=== PATIENT | female | born 1955 | race Hispanic/Latino ===

== ENCOUNTER → 2018-04-13 | Day surgery (SDC) | payer MEDICARE ==
[2018-04-10 09:21] LABS: BASOPHILS % 0.3 % (0.0-1.0); EOSINOPHILS # (AUTO) 0.1 (0.0-0.4); EOSINOPHILS % 1.5 % (0.0-6.0); HEMOGLOBIN 12.6 g/dL (12.0-16.0); LYMPHOCYTES # (AUTO) 2.2 (1.0-3.2); MEAN CORPUSCULAR HEMOGLOBIN 29.5 pg (28-32); MEAN CORPUSCULAR HGB CONC 33.2 g/dL (31-35); MONOCYTES # (AUTO) 0.4 (0.2-0.8); MONOCYTES % 6.1 % (4.4-11.3); NEUTROPHILS # (AUTO) 3.2 (2.1-6.9); NEUTROPHILS % 53.8 % (38.7-80.0); PLATELET COUNT 184 x10e3/uL (140-360); RED BLOOD COUNT 4.27 x10e6/uL (3.6-5.1); RED CELL DISTRIBUTION WIDTH 12.9 % (11.7-14.4)
[2018-04-10 09:34] LABS: INR 1.16; PROTHROMBIN TIME 15.8 seconds (11.9-14.5)
[2018-04-10 09:35] LABS: PARTIAL THROMBOPLASTIN TIME 39.6 seconds (23.8-35.5)
[2018-04-10 09:43] LABS: ALANINE AMINOTRANSFERASE 19 IU/L (0-55); ALBUMIN 3.5 g/dL (3.5-5.0); ALBUMIN/GLOBULIN RATIO 1.1 (0.8-2.0); ALKALINE PHOSPHATASE 83 IU/L (40-150); ANION GAP 10.8 mmol/L (8-16); BLOOD UREA NITROGEN 16 mg/dL (7-26); BUN/CREATININE RATIO 21 (6-25); CALCIUM 9.2 mg/dL (8.4-10.2); CARBON DIOXIDE 28 mmol/L (22-29); CHLORIDE 101 mmol/L (98-107); CREATININE, SERUM 0.78 mg/dL (0.57-1.11); EST GLOMERULAR FILTRATION RATE > 60 ML/MIN (60-); GLUCOSE 220 mg/dL (74-118); POTASSIUM 3.8 mmol/L (3.5-5.1); SODIUM 136 mmol/L (136-145)
[~2018-04-13] MED LIST: ABILIFY5 MG PO; ALPRAZOLAM0.5 MG PO; ASPIR 8181 MG PO; CARVEDILOL12.5 MG PO; CYMBALTA30 MG PO; FENTANYL CITRATE/PF 100MCG/2 ML INJ ONE; FOLIC ACID1 MG PO; GABAPENTIN300 MG PO; GLUCAGON FOR INJ 1 MG VIAL ONE; LEVOTHYROXINE112 MCG PO; LISINOPRIL10 MG PO; MAGNESIUM OXID400 MG PO; MELOXICAM15 MG PO; METFORMIN HCL500 MG PO; MIDAZOLAM HCL 2 MG/2 ML VIAL ONE; NIACIN500 M2 PO; PANTOPRAZOLE SO40 MG PO; PROPOFOL IV EMULSION 10 MG/ML 50 ML VIAL ONE; SIMVASTATIN20 MG PO; SUPER B COMPLE1 EACH PO; TALTZ IM; TALTZ INJ; TUMERIC PO; VITAMIN D3400 UNI1 PEG
--- OUTSIDE RECORDS SUMMARY | 2018-04-13 07:22 | XMS REPORT | Clinical Summary ---
Author Author [facility]th [facility] Organization [facility] Address Unknown Phone Unavailable Care Team Providers Care College Administrator Name Role Phone Silviano Barrera DO PCP Allergies Comments Active Allergy Reactions Severity Noted Date No Known Drug Allergies 11/26/2015 Medications End Date Status Medication Sig Dispensed Refills Start Date Active GAS RELIEF EXTRA STRENGTH Chew 125 mg 0 125 mg chewable tablet daily as 6 needed. Active jplwpgftaqyv-eone-iyzug 0 acid 18-400 mg-mcg tablet 6 Active INVOKANA 100 mg tablet TK 1 T PO QD 11 6 Active carvedilol (COREG) 25 MG Take 25 mg by 0 tablet mouth 2 (two) 6 times a day with meals. Active clobetasol (TEMOVATE) POLINA AA BID 1 0.05 % ointment 6 Active DULoxetine (CYMBALTA) 60 TK 1 C PO QD 11 MG capsule 6 Active FLUVIRIN 3609-3292 45 mcg ADM 0.5ML IM 0 (15 mcg x 3)/0.5 mL UTD 6 suspension Active folic acid (FOLVITE) 1 MG TK 1 T PO QD 0 tablet 6 Active gabapentin (NEURONTIN) Take 600 mg 0 600 MG tablet by mouth 3 6 (three) times a day. Active levothyroxine (SYNTHROID, Take 112 mcg 0 LEVOTHROID) 112 MCG by mouth 6 tablet daily. Active meloxicam (MOBIC) 15 MG TK 1 T PO QD 0 tablet 6 Active metFORMIN (GLUCOPHAGE) Take 1,000 mg 0 500 MG tablet by mouth 2 6 (two) times a day with meals. Active methotrexate 2.5 MG TK 3 TS PO Q 1 tablet WEEK 6 Active pantoprazole (PROTONIX) Take 40 mg by 0 40 MG EC tablet mouth daily. 6 Active simvastatin (ZOCOR) 20 MG Take 20 mg by 0 tablet mouth 6 nightly. Active apremilast (OTEZLA) 30 mg Take 30 mg by 0 tablet mouth 2 (two) times a day. Active aspirin (ECOTRIN) 81 MG Take 81 mg by 0 enteric coated tablet mouth daily. 06/23/2018 Active lisinopril Take 1 tablet 90 tablet 3 (PRINIVIL,ZESTRIL) 20 mg (20 mg total) 8 tabletIndications: by mouth Dilated cardiomyopathy daily. (HCC) Active ALPRAZolam (XANAX) 0.5 MG Take 0.5 mg 0 tablet by mouth nightly as needed for anxiety. Active ARIPiprazole (ABILIFY) 2 Take 2 mg by 0 MG tablet mouth daily. 04/11/2018 Discontinued DULoxetine (CYMBALTA) 30 Take 30 mg by 0 MG capsule mouth daily. 6 06/23/2017 Discontinued lisinopril Take 10 mg by 0 (PRINIVIL,ZESTRIL) 10 MG mouth daily. 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 Encounters Care Team Description Date Type Specialty Noé Travis MD Dilated cardiomyopathy (HCC) (Primary Dx) 04/11/2018 Office Visit Cardiology Anne Liriano MD PhD Dilated cardiomyopathy (HCC) (Primary Dx) 03/02/2018 Office Visit Cardiology Anne Liriano MD PhD Dilated cardiomyopathy (Primary Dx); Essential hypertension 06/23/2017 Office Visit Cardiology Sandee Ba, AGGIE Return Call 06/03/2017 Telephone Cardiology Anne Liriano MD PhD Cardiomyopathy, unspecified type (Primary Dx) 05/19/2017 Office Visit Cardiology after 04/12/2017 Family History Medical History Relation Name Comments Arthritis Other Cancer Other Diabetes Other Heart disease Other Hypertension Other Lupus Other Relation Name Status Comments Other Social History Date Tobacco Use Types Packs/Day Years Used Current Some Day Smoker Cigarettes Smokeless Tobacco: Never Used Alcohol Use Drinks/Week oz/Week Comments Yes occasional Sex Assigned at Date Recorded Not on file Industry Job Start Date Occupation Not on file Not on file Not on file Travel End Travel History Travel Start No recent travel history available. Last Filed Vital Signs Time Taken Vital Sign Reading 04/11/2018 11:52 AM PROCESSING CLERK Blood Pressure 147/86 04/11/2018 11:52 AM PROCESSING CLERK Pulse 91 - Temperature - - Respiratory Rate - - Oxygen Saturation - - Inhaled Oxygen - Concentration 04/11/2018 11:52 AM PROCESSING CLERK Weight 81.6 kg (180 lb) 04/11/2018 11:52 AM PROCESSING CLERK Height 162.6 cm (5' 4") 04/11/2018 11:52 AM PROCESSING CLERK Body Mass Index 30.9 Plan of Treatment Care Team Description Date Type Specialty Anne Liriano MD PhD [address] [facility] [address] [place] [id number] [phone] 05/31/2018 Appointment Procedural Cardiology Anne Liriano MD PhD [address] [facility] [address] [place] [address] [phone] 06/29/2018 Office Visit Cardiology Noé Travis MD [address] [facility] [address] [place] [address] [phone] 10/17/2018 Office Visit Cardiology Health Maintenance Due Date Last Done Comments CERVICAL CANCER SCREENING 1978 BREAST CANCER SCREENING 08/23/2007 COLON CANCER SCREENING 08/23/2007 SHINGLES VACCINES (#1) 08/23/2007 INFLUENZA VACCINE 09/14/2017 12/15/2014 Procedures Comments Procedure Name Priority Date/Time Associated Diagnosis ECG 12-LEAD Routine 04/11/2018 Dilated cardiomyopathy 11:56 AM PROCESSING CLERK (HCC) CV PACEMAKER DEFIB ILR Routine 04/11/2018 INTERROGATION ECHOCARDIOGRAM 2D Routine 06/13/2017 Cardiomyopathy, COMPLETE W MMODE SPECTRAL 3:15 PM CDT unspecified type COLOR DOPPLER ([id number]) after 04/12/2017 Results * ECG 12 lead (04/11/2018 11:56 AM PROCESSING CLERK) Ventricular rate 80 [facility] Atrial rate 80 [facility] MI interval 130 [facility] QRSD interval 134 [facility] QT interval 430 [facility] QTC interval 495 [facility] P axis 1 74 [facility] QRS axis 1 238 [facility] T wave axis -20 [facility] EKG impression Electronic ventricular [facility] pacemaker-In automated comparison with ECG of 13-JUL-2016 10:21,-No significant change was found- Narrative Performed At Performing Organization Address City/State/Zipcode Phone Number [facility] [address] [place] [address] * CV pacemaker defib or ilr interrogation (04/11/2018) Narrative Performed At * Echocardiogram complete w contrast and 3D if needed (06/13/2017 3:15 PM CDT) Narrative Performed At [facility] Echocardiography Report Pat.Name:GRAYSON RODRIGUEZ Pat.ID:[id number] .Date: 06/13/2017 Refer.MD:ANNE LIRIANO MD Exam Time: 2:35:00 PMStudy Type:Routine Echo Height:64inWeight:180lb BSA: 1.87 m2 DOBAge:1955,61Y Sex: FEMALEBP:132/71 HR:85 bpm Sonogrphr: Cortney Benitez, RCS, RCCS, CCT Pat. Stat.:OutpatientRoom[facility] TapeVol: [facility], Study Status:Final Echo Event ID:[id number] Order ID:[id number] Reason for Study:Cardiomyopathy; cardiotoxic therapy evaluations, Cardiomyopathy History / Clinical:Congestive Cardiomyopathy Procedures:2D Echo, Colorflow Doppler Race: SUMMARY: LV size is normal. LV EF is mild to moderately depressed. Strain imaging not performed. FINDINGS: LV: LV size is normal. LV EF is mild to moderately depressed. Globalhypokinesis. Estimated EF is 40-44%. RV: RV size is normal. A pacemaker wire is seen in the RV. RV functionis normal. LA: LA size is normal. RA: RA volume is normal. A pacemaker wire is seen. AO: Aortic root diameter is normal. JACQUELINE: No pericardial effusion. AV: No structural AV abnormalities noted. MV: No structural MV abnormalities noted. PV: No structural PV abnormalities noted. TV: No structural TV abnormalities noted. Contreras: LV relaxation is impaired. LV filling pressure is normal. Hepaticvein pressure is normal, RA pressure < 5mmHg. Other:Insufficient TR jet to estimate PA systolic pressure. MEASUREMENTS: 2D Parasternal [place] LVOT 2.1 cmAo An2.3 cm LVIDd5 cmIndex2.7 cm/m Ao Rtd 2.7 cm Index1.4 cm/m LVIDs3.6 cmLV Rwws154.4 g(87-129) IVSd 0.9 cmLVM Index 79.9 g/m2 LVPWd0.8 cmRWT0.3 LA Ds3 cm LA Volume LA Vol30.8 xxSbdlq18.5 ml/m Signed 06/13/2017 04:23 PM Humberto Restrepo MD Procedure Note Interface, Radiology Results In - 06/13/2017 4:24 PM CDT [facility] Ech[facility] Report Pat.Name: GRAYSON RODRIGUEZ Ty Pereira.ID: [id number] .Date: 06/13/2017 Refer.MD: ANNE LIRIANO MD Exam Time: 2:35:00 PM Study Type:Routine Echo Height: 64in Weight: 180lb BSA: 1.87 m2 Age: 9 1955,61Y Sex: FEMALE BP: 132/71 HR: 85 bpm Sonogrphr: Cortney Benitez, RCS, RCCS, CCT Pat. Stat.:Outpatient Room: -[address] [place] [address] Vol: [facility], Study Status:Final Echo Event ID:[id number] Order ID: [id number] Reason for Study:Cardiomyopathy; cardiotoxic therapy evaluations, Cardiomyopathy History / Clinical:Congestive Cardiomyopathy Procedures:2D Echo, Colorflow Doppler Race: SUMMARY: LV size is normal. LV EF is mild to moderately depressed. Strain imaging not performed. FINDINGS: LV: LV size is normal. LV EF is mild to moderately depressed. Global hypokinesis. Estimated EF is 40-44%. RV: RV size is normal. A pacemaker wire is seen in the RV. RV function is normal. LA: LA size is normal. RA: RA volume is normal. A pacemaker wire is seen. AO: Aortic root diameter is normal. JACQUELINE: No pericardial effusion. AV: No structural AV abnormalities noted. MV: No structural MV abnormalities noted. PV: No structural PV abnormalities noted. TV: No structural TV abnormalities noted. Contreras: LV relaxation is impaired. LV filling pressure is normal. Hepatic vein pressure is normal, RA pressure < 5mmHg. Other: Insufficient TR jet to estimate PA systolic pressure. MEASUREMENTS: 2D Parasternal [place] LVOT 2.1 cm Ao An 2.3 cm LVIDd 5 cm Index 2.7 cm/m Ao Rtd 2.7 cm Index 1.4 cm/m LVIDs 3.6 cm LV Mass 149.4 g (87-129) IVSd 0.9 cm LVM Index 79.9 g/m2 LVPWd 0.8 cm RWT 0.3 LA Ds 3 cm LA Volume LA Vol 30.8 ml Index 16.5 ml/m Signed 06/13/2017 04:23 PM Humberto Restrepo MD Performing Organization Address City/State/Zipcode Phone Number [facility] [phone] [place] [address] after 04/12/2017 Insurance Payer Benefit Subscriber ID Type Phone Address Plan / Group HUMANA MEDICARE HUMANA xxxxxxxxx PPO MEDICARE PPO/PFFS/E [facility] ([place]) [place] [address] Advance Directives Patient has advance care planning documents on file. For more information, brandi e contact: Roberth Carreon [address] [place] [address]
--- OUTSIDE RECORDS SUMMARY | 2018-04-13 07:23 | XMS REPORT | Continuity of Care Document ---
Author Author [facility] Interface Address Unknown Phone Unavailable Problems Problem Status Onset Date Classification Date Reported Comments Source M25.512 - PAIN IN LEFT SHOULDER Active 01/31/2017 [facility] [place] 574.20 Active 08/07/2014 [facility] UNK Active 08/07/2014 [facility] CCL/EPS, SVT ABLATION/ALBERTO/DX: 427.0, 428 Active 02/21/2014 [facility] CHRONIC COMBINED SYSTOLIC AND DIASTOLIC Active 02/21/2014 [facility] 428.42; 427.0;V45.02 Active 02/21/2014 [facility] ACUTE SHOCK FROM DEFIBRILLATOR Active 02/06/2014 [facility] CHEST PAIN, SOB Active 02/06/2014 [facility] 723.1, CERVICAL PAIN, 724.2, ACUTE LOW B Active 04/04/2012 [facility] SOB DIAGNOSED W/ CHF Active 01/12/2012 [facility] DECOMPENSATED HEART FAILURE Active 01/12/2012 [facility] CHF Active 01/11/2012 [facility] Biliary dyskinesia<sup>3</sup> Active 11/10/2011 Problem 02/14/2017 Data migrated from [employer] on 07/13/14. [facility] [place] Obesity<sup>4</sup> Active 11/10/2011 Problem 02/14/2017 Data migrated from [employer] on 07/13/14. [facility] [place] ICD 575.80 / CPT 80525 Active 11/10/2011 [facility] LUMBAR 4-5 STENOSIS,ICD.9-724.02 Active 02/23/2011 [facility] LUMBAR 4-5 STENOSIS Active 02/23/2011 [facility] Chest pain Inactive Problem 06/08/2012 [facility] Cough Active Problem 06/08/2012 [facility] SOBOE - Shortness of breath on exertion Inactive Problem 06/08/2012 [facility] Chest pain Inactive Problem 06/23/2012 [facility] [place] [facility] Cough Active Problem 06/23/2012 [facility] SOBOE - Shortness of breath on exertion Inactive Problem 06/23/2012 [facility] Anemia<sup>1</sup> Active Problem 02/14/2017 Data migrated from [employer] on 07/13/14. [facility] [place] Asthma<sup>2</sup> Active Problem 02/14/2017 Data migrated from [employer] on 07/13/14. [facility] [place] CHF - Congestive heart failure Active Problem 02/14/2017 [facility] [place] Cough Active Problem 02/14/2017 [facility] [place] Depression Active Problem 02/14/2017 [facility] [place] Diabetes mellitus Active Problem 02/14/2017 [facility] [place] GERD - Gastro-esophageal reflux disease Active Problem 02/14/2017 [facility] [place] HLD - Hyperlipidemia Active Problem 02/14/2017 [facility] [place] HTN - Hypertension Active Problem 02/14/2017 [facility] [place] Hypothyroidism Active Problem 02/14/2017 [facility] [place] JOEL - Obstructive sleep apnea Active Problem 02/14/2017 [facility] [place] Pacemaker catheter, device Active Problem 02/14/2017 [facility] [place] Pain Active Problem 02/14/2017 [facility] [place] CHF - Congestive heart failure Active Problem 06/23/2012 [facility] Depression Active Problem 06/23/2012 [facility] Diabetes mellitus Active Problem 06/23/2012 [facility] GERD - Gastro-esophageal reflux disease Active Problem 06/23/2012 [facility] HLD - Hyperlipidemia Active Problem 06/23/2012 [facility] HTN - Hypertension Active Problem 06/23/2012 [facility] Hypothyroidism Active Problem 06/23/2012 [facility] JOEL - Obstructive sleep apnea Active Problem 06/23/2012 [facility] Pacemaker catheter, device Active Problem 06/23/2012 [facility] Pain Active Problem 06/23/2012 [facility] HEART FAILURE NOS Active [facility] SPIN STEN,LUMBR WO CONSUELO Active [facility] Medications Medication Details Route Status Patient Instructions Ordering Provider Order Date Source pantoprazole 40 mg, 1 tab, Route: PO, Drug form: ECTAB, Daily, Dosing Weight 84.091, kg, Start date: 03/07/14 9:00:00, Duration: 30 day, Stop date: 04/05/14 9:00:00Notes: Tablet should not be chewed or crushed. ( Same as: Protonix) No Longer Active 03/07/2014 [facility] Lisinopril 10 mg, 1 tab, Route: PO, Drug form: TAB, Daily, Dosing Weight 84.091, kg, Start date: 03/07/14 9:00:00, Duration: 30 day, Stop date: 04/05/14 9:00:00Notes: (Same as: Prinivil, Zestril) No Longer Active 03/07/2014 [facility] Thyroxine 150 microgram, 1 tab, Route: PO, Drug form: TAB, Daily, Dosing Weight 84.091, kg, Start date: 03/07/14 9:00:00, Duration: 30 day, Stop date: 04/05/14 9:00:00Notes: Take 1 hour before or 2 hours after meal; Enteral feeds may interefere with the absorption of this medication. (Same as: Levothroid) No Longer Active 03/07/2014 [facility] Aspirin 81 MG Enteric Coated Tablet 81 mg, 1 tab, Route: PO, Drug form: ECTAB, Daily, Dosing Weight 84.091, kg, Start date: 03/07/14 9:00:00, Duration: 30 day, Stop date: 04/05/14 9:00:00Notes: Do not crush or chew. (Same As: Ecotrin) No Longer Active 03/07/2014 [facility] Simvastatin 20 mg, 1 tab, Route: PO, Drug form: TAB, Bedtime, Dosing Weight 84.091, kg, Start date: 03/06/14 21:00:00, Duration: 30 day, Stop date: 04/04/14 21:00:00Notes: (Same as: Zocor) Inactive 03/07/2014 [facility] Saline Flush 0.9% 10 ml, Route: IVP, Drug Form: INJ, Dosing Weight 84.091, kg, Q12H, Start date: 03/06/14 21:00:00, Duration: 30 day, Stop date: 04/05/14 9:00:00Notes: (Same as: BD Posiflush) Inactive 03/07/2014 [facility] Metformin hydrochloride 500 MG Oral Tablet 1,000 mg, 2 tab, Route: PO, Drug form: TAB, BID, Dosing Weight 84.091, kg, Start date: 03/06/14 17:00:00, Duration: 30 day, Stop date: 04/05/14 9:00:00Notes: (Same as: Glucophage) Take with meal Inactive 03/06/2014 [facility] Ibuprofen 800 mg, 1 tab, Route: PO, Drug form: TAB, TID, Dosing Weight 84.091, kg, Start date: 03/06/14 17:00:00, Duration: 30 day, Stop date: 04/05/14 13:00:00Notes: (Same as: Motrin) "Do Not Crush" Take with food. Inactive 03/06/2014 [facility] gabapentin 600 MG Oral Tablet 600 mg, 2 cap, Route: PO, Drug form: CAP, TID, Dosing Weight 84.091, kg, Start date: 03/06/14 17:00:00, Duration: 30 day, Stop date: 04/05/14 13:00:00Notes: (Same as: Neurontin) Inactive 03/06/2014 [facility] Furosemide 40 MG Oral Tablet [Lasix] 40 mg, 1 tab, Route: PO, Drug form: TAB, TID, Dosing Weight 84.091, kg, Start date: 03/06/14 17:00:00, Duration: 30 day, Stop date: 04/05/14 13:00:00Notes: (Same as: Lasix) May cause GI upset. Give with food or milk. Inactive 03/06/2014 [facility] carvedilol 25 mg, 1 tab, Route: PO, Drug form: TAB, BID, Dosing Weight 84.091, kg, Start date: 03/06/14 17:00:00, Duration: 30 day, Stop date: 04/05/14 9:00:00Notes: Give with food. (Same As: Coreg) Inactive 03/06/2014 [facility] Saline Flush 0.9% 10 ml, Route: IVP, Drug Form: INJ, Dosing Weight 84.091, kg, PRN, PRN Line Flush, Start date: 03/06/14 13:16:00, Duration: 30 day, Stop date: 04/05/14 13:15:00Notes: (Same as: BD Posiflush) Inactive 03/06/2014 [facility] Morphine 2 mg, 1 mL, Route: IVP, Drug form: INJ, Q15Min, Dosing Weight 84.091, kg, PRN Chest Pain, Start date: 03/06/14 13:16:00, Duration: 2 doses or times, Stop date: Limited # of timesNotes: (Same as:MORPh ine Sulfate) Inactive 03/06/2014 [facility] Acetaminophen 325 MG / Hydrocodone Bitartrate 5 MG Oral Tablet 1 tab, Route: PO, Drug Form: TAB, Dosing Weight 84.091, kg, Q4H, PRN Pain Score 1-5, Start date: 03/06/14 13:16:00, Duration: 30 day, Stop date: 04/05/14 13:15:00Notes: (Same as: [place] 325/5) Do not exceed 4gm/day of acetaminophen. Inactive 03/06/2014 [facility] levothyroxine 150 mcg (0.15 mg) oral tablet 150 microgram=1 tab, PO, Daily, # 30 tab, 0 Refill(s) Active 03/06/2014 [facility] ibuprofen 800 mg oral tablet 800 mg=1 tab, PO, TID, # 270 tab, 0 Refill(s) Active 03/06/2014 [facility] gabapentin 600 MG Oral Tablet 600 mg=1 tab, PO, TID, # 270 tab, 0 Refill(s) Active 03/06/2014 [facility] methotrexate 2.5 mg oral tablet 3 times per week, 0 Refill(s)Special Instructions: 3 times per week Active 03/06/2014 [facility] Sodium Chloride 0.9% IV 1,000 mL 1,000 mL, Rate: 50 ml/hr, Infuse over: 20 hr, Route: IV, Dosing Weight 84.091 kg, Total Volume: 1,000, Start date: 03/06/14 8:44:00, Duration: 30 day, Stop date: 04/05/14 8:43:00 Inactive 03/06/2014 [facility] Neurontin 1,200 mg, 3 cap, Route: PO, Drug form: CAP, BID, Start date: 06/06/12 9:00:00, Duration: 30 day, Stop date: 07/05/12 17:00:00 PO No Longer Active [place] 06/06/2012 [facility] Januvia 100 mg, 1 tab, Route: PO, Drug form: TAB, Daily, Dosing Weight 96.364, kg, Start date: 06/06/12 9:00:00, Duration: 30 day, Stop date: 07/05/12 9:00:00 PO No Longer Active [place] 06/06/2012 [facility] pantoprazole 40 mg, 1 tab, Route: PO, Drug form: ECTAB, Daily, Dosing Weight 96.364, kg, Start date: 06/06/12 9:00:00, Duration: 30 day, Stop date: 07/05/12 9:00:00 PO No Longer Active [place] 06/06/2012 [facility] lisinopril 5 mg, 1 tab, Route: PO, Drug form: TAB, Daily, Dosing Weight 96.364, kg, Start date: 06/06/12 9:00:00, Duration: 30 day, Stop date: 07/05/12 9:00:00 PO No Longer Active [place] 06/06/2012 [facility] Veramyst 27.5 mcg/inh nasal spray 1 inhalation, Route: NASAL, Drug Form: SPRY, Dosing Weight 96.364, kg, Daily, Start date: 06/06/12 9:00:00, Duration: 30 day, Stop date: 07/05/12 9:00:00 NASAL No Longer Active [place] 06/06/2012 [facility] citalopram 40 mg, 2 tab, Route: PO, Drug form: TAB, Daily, Dosing Weight 96.364, kg, Start date: 06/06/12 9:00:00, Duration: 30 day, Stop date: 07/05/12 9:00:00 PO No Longer Active [place] 06/06/2012 [facility] levothyroxine 112 microgram, 1 tab, Route: PO, Drug form: TAB, Q630AM, Dosing Weight 96.364, kg, Start date: 06/06/12 6:30:00, Duration: 30 day, Stop date: 07/05/12 6:30:00 PO No Longer Active [place] 06/06/2012 [facility] Neurontin 600 mg, 2 cap, Route: PO, Drug form: CAP, Bedtime, Start date: 06/05/12 21:00:00, Duration: 30 day, Stop date: 07/04/12 21:00:00 PO No Longer Active [place] 06/06/2012 [facility] simvastatin 20 mg, 1 tab, Route: PO, Drug form: TAB, Bedtime, Dosing Weight 96.364, kg, Start date: 06/05/12 21:00:00, Duration: 30 day, Stop date: 07/04/12 21:00:00 PO No Longer Active [place] 06/06/2012 [facility] Lasix 40 mg oral tablet 40 mg, 1 tab, Route: PO, Drug form: TAB, Daily, Dosing Weight 96.364, kg, Start date: 06/05/12 18:30:00, Duration: 30 day, Stop date: 07/05/12 9:00:00 PO No Longer Active [place] 06/05/2012 [facility] Colace 100 mg oral capsule 100 mg, 1 cap, Route: PO, Drug form: CAP, BID, Dosing Weight 96.364, kg, Start date: 06/05/12 17:00:00, Duration: 30 day, Stop date: 07/05/12 9:00:00 PO No Longer Active [place] 06/05/2012 [facility] tizanidine 4 mg, 1 tab, Route: PO, Drug form: TAB, BID, Dosing Weight 96.364, kg, Start date: 06/05/12 17:00:00, Duration: 30 day, Stop date: 07/05/12 9:00:00 PO No Longer Active [place] 06/05/2012 [facility] potassium chloride 20 mEq oral tablet, extended release 20 mEq, 1 tab, Route: PO, Drug form: ERTAB, BID, Dosing Weight 96.364, kg, Start date: 06/05/12 17:00:00, Duration: 30 day, Stop date: 07/05/12 9:00:00 PO No Longer Active [place] 06/05/2012 [facility] metFORmin 500 mg oral tablet 1,000 mg, 2 tab, Route: PO, Drug form: TAB, BID, Dosing Weight 96.364, kg, Start date: 06/05/12 17:00:00, Duration: 30 day, Stop date: 07/05/12 9:00:00 PO No Longer Active [place] 06/05/2012 [facility] gabapentin 600 mg oral tablet Route: PO, Drug form: TAB, BID, Dosing Weight 96.364, kg, Start date: 06/05/12 17:00:00, Duration: 30 day, Stop date: 07/05/12 9:00:00 PO No Longer Active [place] 06/05/2012 [facility] Advair Diskus 250 mcg-50 mcg inhalation powder 1 inhalation, Route: INHALATION, Drug Form: AERO, Dosing Weight 96.364, kg, BID, Start date: 06/05/12 17:00:00, Duration: 30 day, Stop date: 07/05/12 9:00:00 INHALATION No Longer Active [place] 06/05/2012 [facility] carvedilol 25 mg, 1 tab, Route: PO, Drug form: TAB, BID, Dosing Weight 96.364, kg, Start date: 06/05/12 17:00:00, Duration: 30 day, Stop date: 07/05/12 9:00:00 PO No Longer Active [place] 06/05/2012 [facility] clindamycin 900 mg, 6 mL, Route: IVPB, Drug form: INJ, ABXQ8H, Dosing Weight 96.364, kg, Start date: 06/05/12 16:00:00, Duration: 30 day, Stop date: 07/05/12 8:00:00 IVPB No Longer Active [place] 06/05/2012 [facility] naloxone 0.04 mg, 0.1 mL, Route: IVP, Drug form: INJ, Q2MIN, Dosing Weight 96.364, kg, PRN Narcotic Reversal, Start date: 06/05/12 15:56:00, Duration: 8 doses or times, Stop date: 06/06/12 0:00:00 IVP No Longer Active Kun 06/05/2012 [facility] hydromorphone 0.5 mg, 0.25 mL, Route: IVP, Drug form: INJ, Q5Min, Dosing Weight 96.364, kg, PRN Pain Score 4-6, Start date: 06/05/12 15:56:00, Duration: 5 doses or times, Stop date: 06/06/12 0:00:00 IVP No Longer Active [place] 06/05/2012 [facility] ondansetron 4 mg, 2 mL, Route: IVP, Drug form: INJ, ONCE, Dosing Weight 96.364, kg, PRN Nausea & Vomiting, Start date: 06/05/12 15:56:00 IVP No Longer Active [place] 06/05/2012 [facility] flumazenil 0.2 mg, 2 mL, Route: IVP, Drug form: INJ, PRN, Dosing Weight 96.364, kg, PRN Benzodiazepine Reversal, Initial dose, Start date: 06/05/12 15:56:00, Duration: 1 day, Stop date: 06/06/12 15:55:00 IVP No Longer Active [place] 06/05/2012 [facility] hydrALAZINE 5 mg, 0.25 mL, Route: IVP, Drug form: INJ, Q5Min, Dosing Weight 96.364, kg, PRN Elevated BP, Start date: 06/05/12 15:56:00, Duration: 4 doses or times, Stop date: 06/06/12 0:00:00 IVP No Longer Active [place] 06/05/2012 [facility] labetalol 5 mg, 1 mL, Route: IVP, Drug form: INJ, Q5Min, Dosing Weight 96.364, kg, PRN Elevated BP, Start date: 06/05/12 15:56:00, Duration: 5 doses or times, Stop date: 06/06/12 0:00:00 IVP No Longer Active [place] 06/05/2012 [facility] Benadryl 12.5 mg, 0.25 mL, Route: IV, Drug form: INJ, Q8H, Dosing Weight 96.364, kg, PRN Itching, Start date: 06/05/12 15:15:00, Duration: 30 day, Stop date: 07/05/12 15:14:00 IV No Longer Active [place] 06/05/2012 [facility] morphine Sulfate 2 mg, 1 mL, Route: IVP, Drug form: INJ, Q2H, Dosing Weight 96.364, kg, PRN Pain, Start date: 06/05/12 15:13:00, Duration: 30 day, Stop date: 07/05/12 15:12:00 IVP No Longer Active [place] 06/05/2012 [facility] Lowden 10/325 oral tablet 1 tab, Route: PO, Drug Form: TAB, Dosing Weight 96.364, kg, Q4H, PRN Pain, Start date: 06/05/12 15:13:00, Duration: 30 day, Stop date: 07/05/12 15:12:00 PO No Longer Active [place] 06/05/2012 [facility] Zofran 4 mg, 1 tab, Route: PO, Drug form: TAB, Q8H, Dosing Weight 96.364, kg, PRN Nausea, Start date: 06/05/12 15:12:00, Duration: 30 day, Stop date: 07/05/12 15:11:00 PO No Longer Active [place] 06/05/2012 [facility] methadone 5 mg, 0.5 mL, Route: IV, Drug form: INJ, ONCE, Dosing Weight 96.364, kg, Start date: 06/05/12 12:28:00, Stop date: 06/05/12 12:28:00 IV Active Mae 06/05/2012 [facility] aspirin Substitution Allowed Active 06/05/2012 [facility] Cleocin Phosphate 900 mg, 6 mL, Route: IV, Drug form: INJ, ONCE, Start date: 06/05/12 8:15:00, Stop date: 06/05/12 8:15:00 IV Active Eduardo 06/05/2012 [facility] Probiotic Formula oral capsule PO, Daily, Substitution Allowed, Maintenance PO Active 05/31/2012 [facility] Advair Diskus 250 mcg-50 mcg inhalation powder 1 puff, INHALATION, BID, 28 ea, Substitution Allowed, Maintenance, PWDR INHALATION Active [place] 05/31/2012 [facility] pantoprazole 40 mg, PO, Daily, 30 tab, Substitution Allowed PO Active [place] 05/31/2012 [facility] simvastatin 20 mg oral tablet 20 mg, 1 tab, PO, Bedtime, 30 tab, Substitution Allowed PO Active [place] 05/31/2012 [facility] methotrexate 2.5 mg oral tablet PO, 4 times/week, Substitution Allowed4 times/week PO No Longer Active 05/31/2012 [facility] potassium chloride 20 mEq oral tablet, extended release 20 mEq, 1 tab, PO, BID, 10 tab, Substitution Allowed PO Active [place] 05/31/2012 [facility] Lasix 40 mg oral tablet 40 mg, 1 tab, PO, Daily, 90 tab, Substitution Allowed, TAB PO Active [place] 05/31/2012 [facility] carvedilol 25 mg oral tablet 25 mg, 1 tab, PO, BID, 180 tab, Substitution Allowed, TAB PO Active [place] 05/31/2012 [facility] levothyroxine 112 mcg (0.112 mg) oral capsule PO, Daily, Substitution Allowed PO Active [place] 05/31/2012 [facility] lisinopril 5 mg oral tablet 5 mg, 1 tab, PO, Daily, 30 tab, Substitution Allowed, TAB PO Active [place] 05/31/2012 [facility] acetaminophen-hydrocodone 325 mg-5 mg oral tablet 2 tab, Route: PO, Dosing Weight 141.364, kg, Q6H, PRN Pain Score 4-6, Start date: 04/11/12 9:32:00, Duration: 30 day, Stop date: 05/11/12 9:31:00 PO No Longer Active [place] 04/11/2012 [facility] magnesium oxide 400 mg, 1 tab, Route: PO, Drug form: TAB, TID, Dosing Weight 141.364, kg, Start date: 01/14/12 17:00:00, Duration: 3 doses or times, Stop date: 01/15/12 13:00:00 PO No Longer Active Soumya Chamberlain[place]ustina 01/14/2012 [facility] Advair Diskus 500 mcg-50 mcg inhalation powder 1 inhalation, INHALER, RQ12H, 1 ea, Substitution Allowed, Maintenance, AERO INHALER Active Rachelle 01/14/2012 [facility] DuoNeb inhalation solution 3 mL, INHALATION, RQ6H, , 1 inhalation, Substitution Allowed, Maintenance, SOLN INHALATION Active Rachelle 01/14/2012 [facility] predniSONE 20 mg oral tablet 20 mg, 1 tab, PO, Daily, 3 tab, Substitution Allowed, TAB PO Active Rachelle 01/14/2012 [facility] simvastatin 20 mg oral tablet 20 mg, 1 tab, PO, Bedtime, 30 tab, 3, 3, Substitution Allowed, TAB PO Active Rachelle 01/14/2012 [facility] K-Dur 20 oral tablet, extended release 20 mEq, 1 tab, PO, BID, 60 tab, Substitution Allowed, ERTAB PO Active Rachelle 01/14/2012 [facility] pantoprazole 40 mg oral enteric coated tablet 40 mg, 1 tab, PO, Daily, 30 tab, 3, 3, Substitution Allowed, ECTAB PO Active Rachelle 01/14/2012 [facility] methotrexate 10 mg oral tablet 10 mg, 1 tab, PO, qWeek, on tuesday, 5 tab, 3, 3, Substitution Allowed, TABon tuesday PO Active Rachelle 01/14/2012 [facility] levothyroxine 112 mcg (0.112 mg) oral capsule 112 microgram, 1 cap, PO, Daily, 30 cap, 3, 3, Substitution Allowed, CAP PO Active Rachelle 01/14/2012 [facility] Neurontin 300 mg oral capsule 600 mg, 2 cap, PO, Bedtime, 60 cap, 3, 3, Substitution Allowed, CAP PO Active [facility] 01/14/2012 [facility] gabapentin 600 mg oral tablet 600 mg, 1 tab, PO, BID, 60 tab, 3, 3, Substitution Allowed, TAB PO Active [facility] 01/14/2012 [facility] furosemide 40 mg oral tablet 40 mg, 1 tab, PO, TID, 90 tab, 3, 3, Substitution Allowed, TAB PO Active [facility] 01/14/2012 [facility] carvedilol 25 mg oral tablet 25 mg, 1 tab, PO, BID, 60 tab, 3, 3, Substitution Allowed, TAB PO Active [facility] 01/14/2012 [facility] Tessalon Perles 100 mg oral capsule 100 mg, 1 cap, PO, TID, 15 cap, Substitution Allowed, CAP PO Active [facility] 01/14/2012 [facility] aspirin 81 mg tablet, enteric coated 81 mg, 1 tab, PO, Daily, 30 tab, 3, 3, Substitution Allowed, ECTAB PO Active [facility] 01/14/2012 [facility] potassium chloride 40 mEq, 2 tab, Route: PO, Drug form: ERTAB, ONCE, Dosing Weight 141.364, kg, Start date: 01/14/12 15:11:00, Stop date: 01/14/12 15:11:00 PO No Longer Active Soumya Hook 01/14/2012 [facility] DuoNeb inhalation solution 3 mL, Route: INHALATION, Drug Form: SOLN, Dosing Weight 141.364, kg, RQ6H, Start date: 01/14/12 14:00:00, Duration: 30 day, Stop date: 02/13/12 8:00:00, INHALATION No Longer Active Rachelle 01/14/2012 [facility] Robitussin-DM 15 ml, Route: PO, Drug Form: LIQ, Dosing Weight 141.364, kg, Q8H, STAT, Start date: 01/14/12 13:19:00, Duration: 30 day, Stop date: 02/13/12 6:00:00 PO No Longer Active Delfino 01/14/2012 [facility] simvastatin 20 mg, 1 tab, Route: PO, Drug form: TAB, Bedtime, Dosing Weight 141.364, kg, Start date: 01/13/12 21:00:00, Duration: 30 day, Stop date: 02/11/12 21:00:00 PO No Longer Active [place] 01/14/2012 [facility] Omnipaque 350mg/ml 90 mL, Route: IVP, Drug Form: SOLN, Dosing Weight 141.364, kg, ONCALL, STAT, Start date: 01/13/12 12:15:00, Duration: 1 doses or times, Stop date: 01/13/12 15:00:00, Dose=2.2ml/kg, Max [id number]=8.2ml/kg, Max [id number] IVP No Longer Active Soumya [place] 01/13/2012 [facility] predniSONE 60 mg, 3 tab, Route: PO, Drug form: TAB, Daily, Dosing Weight 141.364, kg, Priority: STAT, Start date: 01/13/12 10:48:00, Duration: 30 day, Stop date: 02/12/12 9:00:00 PO No Longer Active Soumya Hook 01/13/2012 [facility] pantoprazole 40 mg, 1 tab, Route: PO, Drug form: ECTAB, Daily, Dosing Weight 141.364, kg, Start date: 01/13/12 9:00:00, Duration: 30 day, Stop date: 02/11/12 9:00:00 PO No Longer Active [place] 01/13/2012 [facility] lisinopril 5 mg, 1 tab, Route: PO, Drug form: TAB, Daily, Dosing Weight 141.364, kg, Start date: 01/13/12 9:00:00, Duration: 30 day, Stop date: 02/11/12 9:00:00 PO No Longer Active D[place] 01/13/2012 [facility] furosemide 40 mg oral tablet 40 mg, 1 tab, Route: PO, Drug form: TAB, TID, Dosing Weight 141.364, kg, Start date: 01/13/12 9:00:00, Duration: 30 day, Stop date: 02/11/12 17:00:00 PO No Longer Active [place] 01/13/2012 [facility] gabapentin 600 mg oral tablet 1,200 mg, 3 cap, Route: PO, Drug form: CAP, BID, Dosing Weight 141.364, kg, Start date: 01/13/12 9:00:00, Duration: 30 day, Stop date: 02/11/12 17:00:00 PO No Longer Active [place] 01/13/2012 [facility] carvedilol 25 mg, 1 tab, Route: PO, Drug form: TAB, BID, Dosing Weight 141.364, kg, Start date: 01/13/12 9:00:00, Duration: 30 day, Stop date: 02/11/12 17:00:00 PO No Longer Active [place] 01/13/2012 [facility] Tessalon Perles 100 mg, 1 cap, Route: PO, Drug form: CAP, TID, Dosing Weight 141.364, kg, Start date: 01/13/12 9:00:00, Duration: 30 day, Stop date: 02/11/12 17:00:00 PO No Longer Active [place] 01/13/2012 [facility] aspirin 81 mg tablet, enteric coated 81 mg, 1 tab, Route: PO, Drug form: ECTAB, Daily, Dosing Weight 141.364, kg, Start date: 01/13/12 9:00:00, Duration: 30 day, Stop date: 02/11/12 9:00:00 PO No Longer Active [place] 01/13/2012 [facility] influenza virus vaccine, inactivated 0.5 mL, Route: IM, Drug Form: INJ, Daily, Start date: 01/13/12 9:00:00, Duration: 1 doses or times, Stop date: 01/13/12 9:00:00 IM Active [facility] 01/13/2012 [facility] pneumococcal 23-valent vaccine 0.5 ml, Route: IM, Drug Form: INJ, Daily, Start date: 01/13/12 9:00:00, Duration: 1 doses or times, Stop date: 01/13/12 9:00:00 IM Active [facility] 01/13/2012 [facility] levothyroxine 112 microgram, 1 tab, Route: PO, Drug form: TAB, Q630AM, Dosing Weight 141.364, kg, Start date: 01/13/12 6:30:00, Duration: 30 day, Stop date: 02/11/12 6:30:00 PO No Longer Active [place] 01/13/2012 [facility] Advair Diskus 500 mcg-50 mcg inhalation powder 1 inhalation, Route: INHALER, Drug Form: AERO, Dosing Weight 141.364, kg, RQ12H, STAT, Start date: 01/13/12 6:09:00, Duration: 30 day, Stop date: 02/11/12 20:00:00 INHALER No Longer Active [facility] 01/13/2012 [facility] Sodium Chloride 0.9% IV 216.6 mL + albuterol 0.5% inhalation solution 167 mg 216.6 mL, Rate: 31.25 ml/hr, Infuse over: 8 hr, Route: NEB, kg, Total Volume: 250, Delivers 20mg/30ml/hour., Start date: 01/13/12 5:29:00, Duration: 30 day, Stop date: 02/12/12 5:28:00 NEB No Longer Active [facility] 01/13/2012 [facility] heparin 5,000 unit, 1 mL, Route: SUB-Q, Drug form: INJ, Q8H, Dosing Weight 141.364, kg, Start date: 01/13/12 0:00:00, Duration: 30 day, Stop date: 02/11/12 16:00:00 SUB-Q No Longer Active [facility] 01/13/2012 [facility] ipratropium 500 microgram, 2.5 mL, Route: NEB, Drug form: SOLN, RQ4H, Dosing Weight 141.364, kg, Priority: STAT, Start date: 01/12/12 22:29:00, Duration: 30 day, Stop date: 02/11/12 19:00:00 NEB No Longer Active [facility] 01/13/2012 [facility] albuterol 0.083% inhalation solution 2.49 mg, 3 mL, Route: NEB, Drug form: SOLN, Q4H, Dosing Weight 141.364, kg, Priority: STAT, Start date: 01/12/12 22:29:00, Duration: 30 day, Stop date: 02/11/12 20:00:00 NEB No Longer Active [facility] 01/13/2012 [facility] docusate 100 mg, 1 cap, Route: PO, Drug form: CAP, BID, Dosing Weight 141.364, kg, Start date: 01/12/12 21:00:00, Duration: 30 day, Stop date: 02/11/12 9:00:00 PO No Longer Active [facility] 01/13/2012 [facility] Neurontin 600 mg, 2 cap, Route: PO, Drug form: CAP, Bedtime, Start date: 01/12/12 21:00:00, Duration: 30 day, Stop date: 02/10/12 21:00:00 PO No Longer Active [facility] 01/13/2012 [facility] hydrALAZINE 10 mg, 0.5 mL, Route: IV, Drug form: INJ, Q2H, Dosing Weight 141.364, kg, PRN Other -See Comment, Start date: 01/12/12 20:26:00, Duration: 30 day, Stop date: 02/11/12 20:25:00, sbp > 150 IV No Longer Active [facility] 01/13/2012 [facility] Vicodin ES 7.5/750 oral tablet 1 tab, PO, Q12H, PRN, for pain, Substitution Allowed, Maintenance, TAB PO Active 01/13/2012 [facility] Tessalon Perles 100 mg, PO, TID, Substitution Allowed PO No Longer Active [facility] 01/13/2012 [facility] azithromycin 250 mg, PO, Daily, 500 mg day 1, Substitution [id number] mg day 1 PO Active 01/13/2012 [facility] Allergies, Adverse Reactions, Alerts Substance Category Reaction Severity Reaction type Status Date Reported Comments Source Immunizations Immunization Date Given Site Status Last Updated Comments Source pneumococcal 23-valent vaccine<sup>1</sup> 01/14/2012 Right Deltoid completed Lisbeth Result Comment: Discontinued by Dr. Saleh ([facility] fellow). MARIALUISA Boone Results Order Name Results Value Reference Range Date Interpretation Comments Source Bone Density DXA [employer] MA Bone Density DXA Dual Energy MA BONE DENSITY ASSESSMENT: 01/03/2018 CLINICAL DATA: Post menopausal. Other Specified Disorders Of Bone Density And Structure, Unspecified Site/M85.80 RISK FACTORS: Early or surgical menopause and cigarette smoking. FINDINGS: Bone density evaluation was performed 01/03/2018 on the right femur neck using a Hologic unit. The BMD average for the exam is 0.676 g/cm2. The T-score is - 1.60 and the Z-score is -0.40. This matches the World Health Organization's criteria for osteopenia and places the patient at a medium risk for fracture. An additional bone density evaluation was performed 01/03/2018 on the left femur neck using a Hologic unit. The BMD average for the exam is 0.718 g/cm2. The T- score is -1.20 and the Z-score is -0.10. This matches the World Health Organization's criteria for osteopenia and places the patient at a medium risk for fracture. An additional bone density evaluation was performed 01/03/2018 on the right hip using a Hologic unit. The BMD average for the exam is 0.880 g/cm2. The T-score is -0.50 and the Z-score is 0.30. This matches the World Health Organization's criteria for normal bone density and places the patient within normal limits of fracture risk. An additional bone density evaluation was performed 01/03/2018 on the left hip using a Hologic unit. The BMD average for the exam is 0.921 g/cm2. The T-score is -0.20 and the Z-score is 0.60. This matches the World Health Organization's criteria for normal bone density and places the patient within normal limits of fracture risk. An additional bone density evaluation was performed 01/03/2018 on the AP L1-L4 region of spine. The BMD average for the exam is 1.001 g/cm2. The T-score is - 0.40 and the Z-score is 1.00. This matches the World Health Organization's criteria for normal bone density and places the patient within normal limits of fracture risk. This scan was performed on a Clean [employer] DEXA scanner. FRAX 10 year probability of major osteoporotic fracture is 3.9% and hip fracture is 0.5%. IMPRESSION: OSTEOPENIA Patient is at medium risk for fracture. Patient consult w/primary care provider is recommended. This exam was interpreted at [id number] for Karyna Ángel. 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 TECHNIQUE: AP, RPO and LPO radiographs of the sacroiliac joints FINDINGS: The sacroiliac joint widths are well preserved. No sclerosis or osseous erosion is seen on either side. The bone mineral density is decreased. Postoperative changes are seen in the soft tissues. IMPRESSION: No radiographic evidence of inflammatory arthritis. 12/28/2017 - - This report was dictated by a Receptionist Telephone Operator/Fellow. I have personally reviewed the images as well as the Resident's interpretation and agree with the findings. 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 TECHNIQUE: AP, lateral and oblique radiographs of the bilateral feet FINDINGS: No acute fracture or malalignment is identified. Joint spaces and bone mineral density is preserved. No periarticular erosions are seen. Incidental note is made of os naviculare bilaterally. There are bilateral calcaneal Achilles enthesophytes. Vascular calcifications are seen. Additionally, dermal calcifications are noted about the ankle. IMPRESSION: No radiographic evidence of inflammatory arthritis. 12/28/2017 - - This report was dictated by a Receptionist Telephone Operator/Fellow. I have personally reviewed the images as well as the Resident's interpretation and agree with the findings. 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 TECHNIQUE: PA, lateral and oblique radiographs of the bilateral hands. FINDINGS: No acute fracture or malalignment is identified. No periarticular erosions are seen. Joint spaces and bone mineral density are preserved. Incidental note is made of short distal phalanges. No soft tissue abnormality is identified. IMPRESSION: No radiographic evidence of inflammatory arthritis. 12/28/2017 - - This report was dictated by a Receptionist Telephone Operator/Fellow. I have personally reviewed the images as well as the Resident's interpretation and agree with the findings. Read by: Joaquina Wislon MD Resident: Joaquina Wilson MD Dictated Date/time: 12/28/17 14:48 Electronically Signed by: Dylan Campa MD 12/28/17 18:26 FINAL REPORT [facility] Shoulder w contrast CT Shoulder w contrast CT EXAMINATION: CT left shoulder without contrast HISTORY: M25.512 Pain in left shoulder - M25.512 Pain in left shoulder; COMPARISON: Left shoulder arthrogram 02/11/2017 TECHNIQUE: Multiple contiguous transaxial CT images of the left shoulder are performed after intra-articular injection of contrast. Oblique coronal and oblique sagittal reformatted images are performed. Total DLP is 313 mGy-cm. This exam was performed according to our departmental dose-optimization program which includes automated exposure control, adjustment of the mA and/or kV according to patient size and/or use of iterative reconstruction technique. FINDINGS: Rotator cuff tendons: There is a full-thickness 5 mm tear of the far cranial subscapularis tendon footplate. There is an adjacent high-grade undersurface millimeters tear of the far anterior footplate of the supraspinatus tendon with moderate thinning of the footplate of the supraspinatus anteriorly. Infraspinatus and teres minor tendons are intact. Muscles: There is normal attenuation and bulk of the rotator cuff musculature. Acromio-osseous outlet: There is a type II acromion without a subacromial spur. There is no os acromiale. Mild osteoarthrosis of the acromial clavicular joint. Bone: There are no fractures or dislocations. The glenohumeral joint space is normal. Soft tissue: There is extension of intra-articular contrast into the subacromial/subdeltoid bursa. Other: Left subclavian pacer device with leads partially visualized. Visualized portions of the left lung mediastinum are otherwise unremarkable. IMPRESSION: 1. Full-thickness 5 mm tear of the far cranial subscapularis tendon footplate. There is an adjacent 8 mm high-grade undersurface tear of the far anterior footplate of the supraspinatus. 02/11/2017 - - Read by: Bert Gil MD Dictated Date/time: 02/11/17 11:02 Electronically Signed by: Bert Gil MD 02/11/17 11:15 FINAL REPORT JENNIE Bo[facility] Inj Arthrogram Shoulder Unilat DX Inj Arthrogram Shoulder Unilat DX Exam: Fluoroscopic guided left shoulder arthrogram Reason for Exam: Pain Comparison Exam: None Discussion: On varnishing unit operator view, there are no acute bony abnormalities identified within the left shoulder. No suspicious osteoblastic or osteolytic lesions. Pacemaker leads are seen overlying the left axilla. Left shoulder was prepped and draped in a sterile fashion. 1% lidocaine was used as local anesthesia. Under fluoroscopic guidance, the tip of a 22-gauge needle was placed into the left shoulder joint. Approximately 10 cc of Omnipaque 300 was successfully injected. External and internal rotation images were obtained pre- and postinjection of contrast material. Findings are suggestive of a full-thickness rotator cuff tear. No immediate post procedure complications. Please see interpretation of left shoulder CT scan performed same day for further details. Fluoro time is 47 seconds. Total exam MJY=474 mGy-cm. Impression: 1. Successful fluoroscopic guided left shoulder arthrogram. 02/11/2017 - - Read by: Roman Win MD Dictated Date/time: 02/11/17 10:12 Electronically Signed by: Roman Win MD 02/11/17 10:14 FINAL REPORT [facility] BLOOD BANK RESULTS Antibody Scrn Negative (03/06/14 8:46 AM) 03/06/2014 [facility] BLOOD BANK RESULTS ABO/Rh A POS 03/06/2014 [facility] CHEM PANEL Magnesium Lvl 1.9 mg/dL 1.8 - 2.4 03/06/2014 [facility] ELECTROLYTES AGAP 11.3 meq/L 10.0 - 20.0 03/06/2014 [facility] ELECTROLYTES eGFR 97 mL/min/1.73m2 03/06/2014 1Result Comment: The eGFR is calculated using the CKD-EPI formula. In most young, healthy individuals the eGFR will be >90 mL/min/1.73m2. The eGFR declines with age. An eGFR of 60-89 may be normal in some populations, particularly the elderly, for whom the CKD-EPI formula has not been extensively validated. Use of the eGFR is not recommended in the following populations: Individuals with unstable creatinine concentrations, including patients and those with serious co-morbid conditions. Patients with extremes in muscle mass or diet. The data above are obtained from the National Kidney Disease Education Program (NKDEP) which additionally recommends that when the eGFR is used in patients with extremes of body mass index for purposes of drug dosing, the eGFR should be multiplied by the estimated BMI. [facility] ELECTROLYTES Sodium Lvl 140 meq/L 135 - 145 03/06/2014 [facility] ELECTROLYTES Potassium Lvl 4.3 meq/L 3.5 - 5.1 03/06/2014 [facility] ELECTROLYTES Chloride Lvl 101 meq/L 95 - 109 03/06/2014 [facility] ELECTROLYTES Calcium Lvl 9.2 mg/dL 8.5 - 10.5 03/06/2014 [facility] ELECTROLYTES CO2 32 meq/L 24 - 32 03/06/2014 [facility] ELECTROLYTES Creatinine Lvl 0.7 mg/dL 0.5 - 1.4 03/06/2014 [facility] ELECTROLYTES Glucose Lvl 232 mg/dL 70 - 99 03/06/2014 2Interpretive Data: Adult reference range values reflect the clinical guidelines of the [place] [employer]. [facility] ELECTROLYTES BUN 13 mg/dL 7 - 22 03/06/2014 [facility] HEMATOLOGY Monocytes 6.0 % 2.0 - 12.0 03/06/2014 [facility] HEMATOLOGY Lymphocytes 33.9 % 20.0 - 40.0 03/06/2014 [facility] HEMATOLOGY Segs 57.9 % 45.0 - 75.0 03/06/2014 [facility] HEMATOLOGY Eosinophils 1.9 % 0.0 - 4.0 03/06/2014 [facility] HEMATOLOGY Basophils 0.3 % 0.0 - 1.0 03/06/2014 [facility] HEMATOLOGY Segs-Bands # 4.0 K/CMM 1.5 - 8.1 03/06/2014 [facility] HEMATOLOGY Eosinophils # 0.1 K/CMM 0.0 - 0.5 03/06/2014 [facility] HEMATOLOGY Monocytes # 0.4 K/CMM 0.0 - 0.8 03/06/2014 [facility] HEMATOLOGY Lymphocytes # 2.3 K/CMM 1.0 - 5.5 03/06/2014 [facility] HEMATOLOGY Platelet 222 K/CMM 133 - 450 03/06/2014 [facility] HEMATOLOGY RDW 13.8 % 11.5 - 14.5 03/06/2014 [facility] HEMATOLOGY MPV 7.6 fL 7.4 - 10.4 03/06/2014 [facility] HEMATOLOGY MCV 92.4 fL 80.0 - 98.0 03/06/2014 [facility] HEMATOLOGY MCH 31.8 pg 27.0 - 31.0 03/06/2014 [facility] HEMATOLOGY MCHC 34.5 g/dL 32.0 - 36.0 03/06/2014 [facility] HEMATOLOGY RBC 4.00 M/CMM 4.20 - 5.40 03/06/2014 [facility] HEMATOLOGY WBC 6.9 K/CMM 3.7 - 10.4 03/06/2014 [facility] HEMATOLOGY Hct 36.9 % 36.0 - 48.0 03/06/2014 [facility] HEMATOLOGY Hgb 12.7 g/dL 12.0 - 16.0 03/06/2014 [facility] HEMATOLOGY PTT 41.4 s 22.9 - 35.8 03/06/2014 4Interpretive Data: Heparin Therapeutic Range: 57 - 92 Seconds [facility] HEMATOLOGY PT 15.6 s 12.0 - 14.7 03/06/2014 [facility] HEMATOLOGY INR 1.23 0.85 - 1.17 03/06/2014 3Interpretive Data: RECOMMENDED RANGES FOR PROTIME INR: 2.0-3.0 for most medical and surgical thromboembolic states. 2.5-3.5 for artificial heart valves and recurrent embolism. INR SHOULD BE USED ONLY FOR PATIENTS ON STABLE ANTICOAGULANT THERAPY. [facility] Spine lumbar 2 or 3 views Spine lumbar 2 or 3 views EXAMINATION: Lumbar spine, AP and lateral. DATE: 06/21/2012. INDICATION: Low back pain. DISCUSSION: AP and lateral views lumbar spine are compared to preoperative exam dated 04/26/2012. Over the interval, laminectomy has been performed at L4. Exam is otherwise stable. There is persistent focal levoscoliosis at L4-L5 associated with some right-sided disc space narrowing and osteophyte formation. The AP alignment is stable and normal and mild spondylitic changes are present at the remainder the lumbar levels. IMPRESSION: Postop changes. Otherwise stable. 06/21/2012 - - Read by: Ethan Weber Dictated Date/time: 06/21/12 17:26 Electronically Signed by: Ethan Weber 06/21/12 17:27 FINAL REPORT [facility] BEDSIDE GLUCOSE TESTING Comment1 Notify AGGIE/ 06/06/2012 NA [facility] BEDSIDE GLUCOSE TESTING Gluc POC Lifscn 117 mg/dL 70 - 99 06/06/2012 [place] 1Interpretive Data: Upper Reportable Limit: 200 mg/dL. [facility] BEDSIDE GLUCOSE TESTING Gluc POC Lifscn 145 mg/dL 70 - 99 06/06/2012 [place] 2Interpretive Data: Upper Reportable Limit: 200 mg/dL. [facility] BEDSIDE GLUCOSE TESTING Comment1 Notify AGGIE/ 06/06/2012 NA [facility] BEDSIDE GLUCOSE TESTING Gluc POC Lifscn 137 mg/dL 70 - 99 06/05/2012 [place] 3Interpretive Data: Upper Reportable Limit: 200 mg/dL. [facility] CHEMISTRY POC A LA 1.5 mMol/L 0.5 - 2.2 06/05/2012 Normal [facility] CHEMISTRY POC A Glu 94 mg/dL 70 - 99 06/05/2012 Normal [facility] CHEMISTRY POC A Ca Ion 1.07 mMol/L 1.16 - 1.30 06/05/2012 LOW [facility] CHEMISTRY POC A PO2 211 mm[Hg] 80 - 100 06/05/2012 [facility] CHEMISTRY POC A PCO2 44 mm[Hg] 35 - 45 06/05/2012 Normal [facility] CHEMISTRY POC A pH 7.43 7.35 - 7.45 06/05/2012 Normal [facility] CHEMISTRY POC A Temp 37.0 Simi 06/05/2012 NA [facility] CHEMISTRY POC A Hct 35.0 % 36.0 - 48.0 06/05/2012 LOW [facility] CHEMISTRY POC A HCO3 29 mMol/L 22 - 26 06/05/2012 [place] [facility] CHEMISTRY POC A Na 141 meq/L 135 - 145 06/05/2012 Normal [facility] CHEMISTRY POC A K 3.7 meq/L 3.5 - 5.1 06/05/2012 Normal [facility] CHEMISTRY POC A BE 4 mMol/L -2-2 - 2 06/05/2012 [facility] CHEMISTRY POC A O2 Sat 100.0 % 95.0 - 100.0 06/05/2012 Normal [facility] CHEMISTRY POC A Source ART 06/05/2012 NA [facility] BLOOD BANK RESULTS Antibody Scrn Negative (06/05/2012 08:15:00) 06/05/2012 Normal [facility] BLOOD BANK RESULTS ABO/Rh A POS 06/05/2012 Unknown [facility] HEMATOLOGY PTT 37.4 s 22.9 - 35.8 05/31/2012 [place] 5Interpretive Data: Heparin Therapeutic Range: 57 - 92 Seconds [facility] HEMATOLOGY INR 1.17 0.85 - 1.17 05/31/2012 Normal 4Interpretive Data: RECOMMENDED RANGES FOR PROTIME INR: 2.0-3.0 for most medical and surgical thromboembolic states. 2.5-3.5 for artificial heart valves and recurrent embolism. INR SHOULD BE USED ONLY FOR PATIENTS ON STABLE ANTICOAGULANT THERAPY. [facility] HEMATOLOGY PT 15.1 s 12.0 - 14.7 05/31/2012 [facility] CHEMISTRY eGFR 73 mL/min/1.73m2 04/11/2012 NA 1Result Comment: The eGFR is calculated using the CKD-EPI formula. In most young, healthy individuals the eGFR will be >90 mL/min/1.73m2. The eGFR declines with age. An eGFR of 60-89 may be normal in some populations, particularly the elderly, for whom the CKD-EPI formula has not been extensively validated. Use of the eGFR is not recommended in the following populations: Individuals with unstable creatinine concentrations, including patients and those with serious co-morbid conditions. Patients with extremes in muscle mass or diet. The data above are obtained from the National Kidney Disease Education Program (NKDEP) which additionally recommends that when the eGFR is used in patients with extremes of body mass index for purposes of drug dosing, the eGFR should be multiplied by the estimated BMI. [facility] CHEMISTRY BUN 14 mg/dL 7 - 22 04/11/2012 Normal [facility] CHEMISTRY Creatinine Lvl 0.9 mg/dL 0.5 - 1.4 04/11/2012 Normal [facility] HEMATOLOGY PTT 37.8 s 22.9 - 35.8 04/11/2012 [place] 3Interpretive Data: Heparin Therapeutic Range: 57 - 92 Seconds [facility] HEMATOLOGY PT 14.9 s 12.0 - 14.7 04/11/2012 [place] [facility] HEMATOLOGY INR 1.15 0.85 - 1.17 04/11/2012 Normal 2Interpretive Data: RECOMMENDED RANGES FOR PROTIME INR: 2.0-3.0 for most medical and surgical thromboembolic states. 2.5-3.5 for artificial heart valves and recurrent embolism. INR SHOULD BE USED ONLY FOR PATIENTS ON STABLE ANTICOAGULANT THERAPY. [facility] HEMATOLOGY Platelet 245 K/CMM 133 - 450 04/11/2012 Normal [facility] CHEMISTRY Phosphorus 3.2 mg/dL 2.5 - 4.5 01/14/2012 Normal [facility] CHEMISTRY Magnesium Lvl 1.8 mg/dL 1.8 - 2.4 01/14/2012 Normal [facility] CHEMISTRY AGAP 14.7 meq/L 10.0 - 20.0 01/14/2012 Normal [facility] CHEMISTRY eGFR 99 mL/min/1.73m2 01/14/2012 NA 2Result Comment: The eGFR is calculated using the CKD-EPI formula. In most young, healthy individuals the eGFR will be >90 mL/min/1.73m2. The eGFR declines with age. An eGFR of 60-89 may be normal in some populations, particularly the elderly, for whom the CKD-EPI formula has not been extensively validated. Use of the eGFR is not recommended in the following populations: Individuals with unstable creatinine concentrations, including patients and those with serious co-morbid conditions. Patients with extremes in muscle mass or diet. The data above are obtained from the National Kidney Disease Education Program (NKDEP) which additionally recommends that when the eGFR is used in patients with extremes of body mass index for purposes of drug dosing, the eGFR should be multiplied by the estimated BMI. [facility] CHEMISTRY CO2 28 meq/L 24 - 32 01/14/2012 Normal [facility] CHEMISTRY Chloride Lvl 98 meq/L 95 - 109 01/14/2012 Normal [facility] CHEMISTRY Sodium Lvl 137 meq/L 135 - 145 01/14/2012 Normal [facility] CHEMISTRY Creatinine Lvl 0.7 mg/dL 0.5 - 1.4 01/14/2012 Normal [facility] CHEMISTRY BUN 18 mg/dL 7 - 22 01/14/2012 Normal [facility] CHEMISTRY Potassium Lvl 3.7 meq/L 3.5 - 5.1 01/14/2012 Normal [facility] CHEMISTRY Calcium Lvl 8.6 mg/dL 8.5 - 10.5 01/14/2012 Normal [facility] CHEMISTRY Glucose Lvl 145 mg/dL 70 - 99 01/14/2012 [place] 5Interpretive Data: Adult reference range values reflect the clinical guidelines of the [place] [employer]. [facility] HEMATOLOGY MCHC 35.4 g/dL 32.0 - 36.0 01/14/2012 Normal [facility] HEMATOLOGY MCH 33.8 pg 27.0 - 31.0 01/14/2012 [place] [facility] HEMATOLOGY MCV 95.2 fL 81.0 - 99.0 01/14/2012 Normal [facility] HEMATOLOGY MPV 7.7 fL 7.4 - 10.4 01/14/2012 Normal [facility] HEMATOLOGY Platelet 213 K/CMM 133 - 450 01/14/2012 Normal [facility] HEMATOLOGY RDW 13.8 % 11.5 - 14.5 01/14/2012 Normal [facility] HEMATOLOGY WBC 7.2 K/CMM 3.7 - 10.4 01/14/2012 Normal [facility] HEMATOLOGY RBC 3.78 M/CMM 4.20 - 5.40 01/14/2012 LOW [facility] HEMATOLOGY Hct 36.0 % 36.0 - 48.0 01/14/2012 Normal [facility] HEMATOLOGY Hgb 12.7 g/dL 12.0 - 16.0 01/14/2012 Normal [facility] HEMATOLOGY Lymphocytes # 2.2 K/CMM 1.0 - 5.5 01/14/2012 Normal [facility] HEMATOLOGY Monocytes # 0.7 K/CMM 0.0 - 0.8 01/14/2012 Normal [facility] HEMATOLOGY Eosinophils 0.1 % 0.0 - 4.0 01/14/2012 Normal [facility] HEMATOLOGY Basophils 0.5 % 0.0 - 1.0 01/14/2012 Normal [facility] HEMATOLOGY Segs-Bands # 4.3 K/CMM 1.5 - 8.1 01/14/2012 Normal [facility] HEMATOLOGY Segs 59.1 % 45.0 - 75.0 01/14/2012 Normal [facility] HEMATOLOGY Lymphocytes 30.7 % 20.0 - 40.0 01/14/2012 Normal [facility] HEMATOLOGY Monocytes 9.6 % 2.0 - 12.0 01/14/2012 Normal [facility] CHEMISTRY Bili Indirect 0.4 mg/dL 0.0 - 1.0 01/13/2012 Normal [facility] CHEMISTRY Globulin 3.5 g/dL 2.0 - 4.0 01/13/2012 Normal [facility] CHEMISTRY A/G Ratio 1.1 0.7 - 1.6 01/13/2012 Normal [facility] CHEMISTRY AST 58 unit/L 0 - 37 01/13/2012 [facility] CHEMISTRY Total Protein 7.3 g/dL 6.4 - 8.4 01/13/2012 Normal [facility] CHEMISTRY Bili Direct 0.2 mg/dL 0.0 - 0.3 01/13/2012 Normal [facility] CHEMISTRY Bili Total 0.6 mg/dL 0.2 - 1.3 01/13/2012 Normal [facility] CHEMISTRY Alk Phos 91 unit/L 39 - 136 01/13/2012 Normal [facility] CHEMISTRY Albumin Lvl 3.8 g/dL 3.5 - 5.0 01/13/2012 Normal [facility] CHEMISTRY ALT 66 unit/L 0 - 65 01/13/2012 [facility] CHEMISTRY Phosphorus 5.0 mg/dL 2.5 - 4.5 01/13/2012 [facility] CHEMISTRY eGFR 84 mL/min/1.73m2 01/13/2012 NA 3Result Comment: The eGFR is calculated using the CKD-EPI formula. In most young, healthy individuals the eGFR will be >90 mL/min/1.73m2. The eGFR declines with age. An eGFR of 60-89 may be normal in some populations, particularly the elderly, for whom the CKD-EPI formula has not been extensively validated. Use of the eGFR is not recommended in the following populations: Individuals with unstable creatinine concentrations, including patients and those with serious co-morbid conditions. Patients with extremes in muscle mass or diet. The data above are obtained from the National Kidney Disease Education Program (NKDEP) which additionally recommends that when the eGFR is used in patients with extremes of body mass index for purposes of drug dosing, the eGFR should be multiplied by the estimated BMI. [facility] CHEMISTRY Glucose Lvl 120 mg/dL 70 - 99 01/13/2012 [place] 6Interpretive Data: Adult reference range values reflect the clinical guidelines of the [place] [employer]. [facility] CHEMISTRY Creatinine Lvl 0.8 mg/dL 0.5 - 1.4 01/13/2012 Normal [facility] CHEMISTRY Sodium Lvl 137 meq/L 135 - 145 01/13/2012 Normal [facility] CHEMISTRY CO2 28 meq/L 24 - 32 01/13/2012 Normal [facility] CHEMISTRY Calcium Lvl 9.3 mg/dL 8.5 - 10.5 01/13/2012 Normal [facility] CHEMISTRY Potassium Lvl 3.7 meq/L 3.5 - 5.1 01/13/2012 Normal [facility] CHEMISTRY Chloride Lvl 100 meq/L 95 - 109 01/13/2012 Normal [facility] CHEMISTRY AGAP 12.7 meq/L 10.0 - 20.0 01/13/2012 Normal [facility] CHEMISTRY BUN 27 mg/dL 7 - 22 01/13/2012 [place] [facility] CHEMISTRY Magnesium Lvl 1.8 mg/dL 1.8 - 2.4 01/13/2012 Normal [facility] CHEMISTRY Troponin-T null 0.000 - 0.100 01/13/2012 Normal [facility] CHEMISTRY Total CK 66 unit/L 12 - 191 01/13/2012 Normal [facility] CHEMISTRY Troponin-I null 0.00 - 0.40 01/13/2012 Normal [facility] CHEMISTRY Ca Norm mgdL 4.00 mg/dL 4.65 - 5.20 01/13/2012 LOW [facility] CHEMISTRY Ca Ion 1.03 mMol/L 1.16 - 1.30 01/13/2012 [facility] CHEMISTRY Ca Norm 1.00 mMol/L 1.16 - 1.30 01/13/2012 [facility] CHEMISTRY Ca Ion mgdL 4.12 mg/dL 4.65 - 5.20 01/13/2012 [facility] HEMATOLOGY MPV 7.3 fL 7.4 - 10.4 01/13/2012 [facility] HEMATOLOGY Platelet 176 K/CMM 133 - 450 01/13/2012 [facility] HEMATOLOGY RDW 13.8 % 11.5 - 14.5 01/13/2012 [facility] HEMATOLOGY MCHC 34.1 g/dL 32.0 - 36.0 01/13/2012 [facility] HEMATOLOGY RBC 3.84 M/CMM 4.20 - 5.40 01/13/2012 [facility] HEMATOLOGY Hgb 12.6 g/dL 12.0 - 16.0 01/13/2012 [facility] HEMATOLOGY WBC 6.1 K/CMM 3.7 - 10.4 01/13/2012 [facility] HEMATOLOGY MCV 95.9 fL 81.0 - 99.0 01/13/2012 [facility] HEMATOLOGY Hct 36.9 % 36.0 - 48.0 01/13/2012 [facility] HEMATOLOGY MCH 32.8 pg 27.0 - 31.0 01/13/2012 [facility] HEMATOLOGY Basophils # 0.1 K/CMM 0.0 - 0.2 01/13/2012 [facility] HEMATOLOGY Eosinophils # 0.3 K/CMM 0.0 - 0.5 01/13/2012 [facility] HEMATOLOGY Monocytes # 0.5 K/CMM 0.0 - 0.8 01/13/2012 [facility] HEMATOLOGY Lymphocytes 48.4 % 20.0 - 40.0 01/13/2012 [facility] HEMATOLOGY Segs 37.1 % 45.0 - 75.0 01/13/2012 [facility] HEMATOLOGY Segs-Bands # 2.2 K/CMM 1.5 - 8.1 01/13/2012 [facility] HEMATOLOGY Basophils 1.1 % 0.0 - 1.0 01/13/2012 [facility] HEMATOLOGY Lymphocytes # 2.9 K/CMM 1.0 - 5.5 01/13/2012 Normal [facility] HEMATOLOGY Eosinophils 5.8 % 0.0 - 4.0 01/13/2012 [place] [facility] HEMATOLOGY Monocytes 7.6 % 2.0 - 12.0 01/13/2012 Normal [facility] BEDSIDE GLUCOSE TESTING Gluc POC Lifscn 130 mg/dL 70 - 99 01/13/2012 [place] 1Interpretive Data: Upper Reportable Limit: 200 mg/dL. [facility] CHEMISTRY Troponin-T null 0.000 - 0.100 01/13/2012 Normal [facility] CHEMISTRY Total CK 68 unit/L 12 - 191 01/13/2012 Normal [facility] CHEMISTRY Troponin-I null 0.00 - 0.40 01/13/2012 Normal [facility] URINALYSIS UA Hyal Cast 3 /LPF 0 - 2 01/13/2012 NA [facility] URINALYSIS UA WBC 3 /HPF 0 - 5 01/13/2012 NA [facility] URINALYSIS UA RBC null 0 - 2 01/13/2012 [facility] URINALYSIS UA Spec Grav 1.015 <=1.030 01/13/2012 Normal [facility] URINALYSIS UA Color Yellow *NA* (01/12/2012 23:30:00) Yellow 01/13/2012 [facility] URINALYSIS UA Turbidity Clear (01/12/2012 23:30:00) Clear 01/13/2012 Normal [facility] URINALYSIS UA Ketones Negative mg/dL *NA* (01/12/2012 23:30:00) Negative 01/13/2012 [facility] URINALYSIS UA Bili Negative *NA* (01/12/2012 23:30:00) Negative 01/13/2012 [facility] URINALYSIS UA Urobilinogen <=1.0 mg/dL
*NA*
(01/12/2012 23:30:00) <sup> </sup> 0.1 - 1.0 01/13/2012 [facility] URINALYSIS UA Sq Epi Few /LPF *NA* (01/12/2012 23:30:00) Few 01/13/2012 [facility] URINALYSIS UA Bacteria Moderate /HPF *ABN* (01/12/2012 23:30:00) None Seen 01/13/2012 ABN [facility] URINALYSIS UA Leuk Est Negative (01/12/2012 23:30:00) Negative 01/13/2012 Normal [facility] URINALYSIS UA Blood Negative (01/12/2012 23:30:00) Negative 01/13/2012 Normal [facility] URINALYSIS UA Nitrite Negative (01/12/2012 23:30:00) Negative 01/13/2012 Normal [facility] URINALYSIS UA Glucose Negative mg/dL *NA* (01/12/2012 23:30:00) Negative 01/13/2012 NA [facility] URINALYSIS UA Protein Negative mg/dL (01/12/2012 23:30:00) Negative 01/13/2012 Normal [facility] URINALYSIS UA Mucus Few /LPF *NA* (01/12/2012 23:30:00) None Seen 01/13/2012 NA [facility] URINALYSIS UA pH 5.0 5.0 - 8.0 01/13/2012 Normal [facility] CHEMISTRY BNP <2 pg/mL <sup>8</sup>
(01/12/2012 22:00:00) <sup> </sup> <=100 01/13/2012 Normal 8Interpretive Data: Elevated results are in line with increasing severity of congestive heart failure. Minor elevations between 100 and 300 may be seen with Myocardial Ischemia, Sodium retaining drugs, and compensated/treated heart failure. [facility] CHEMISTRY Troponin-I null 0.00 - 0.40 01/13/2012 Normal [facility] CHEMISTRY Magnesium Lvl 1.9 mg/dL 1.8 - 2.4 01/13/2012 Normal [facility] CHEMISTRY Phosphorus 5.7 mg/dL 2.5 - 4.5 01/13/2012 [place] [facility] CHEMISTRY AGAP 16.2 meq/L 10.0 - 20.0 01/13/2012 Normal [facility] CHEMISTRY eGFR 51 mL/min/1.73m2 01/13/2012 NA 4Result Comment: The eGFR is calculated using the CKD-EPI formula. In most young, healthy individuals the eGFR will be >90 mL/min/1.73m2. The eGFR declines with age. An eGFR of 60-89 may be normal in some populations, particularly the elderly, for whom the CKD-EPI formula has not been extensively validated. Use of the eGFR is not recommended in the following populations: Individuals with unstable creatinine concentrations, including patients and those with serious co-morbid conditions. Patients with extremes in muscle mass or diet. The data above are obtained from the National Kidney Disease Education Program (NKDEP) which additionally recommends that when the eGFR is used in patients with extremes of body mass index for purposes of drug dosing, the eGFR should be multiplied by the estimated BMI. [facility] CHEMISTRY Glucose Lvl 166 mg/dL 70 - 99 01/13/2012 [place] 7Interpretive Data: Adult reference range values reflect the clinical guidelines of the [place] [employer]. [facility] CHEMISTRY BUN 32 mg/dL 7 - 22 01/13/2012 [place] [facility] CHEMISTRY Creatinine Lvl 1.2 mg/dL 0.5 - 1.4 01/13/2012 Normal [facility] CHEMISTRY Sodium Lvl 140 meq/L 135 - 145 01/13/2012 Normal [facility] CHEMISTRY Potassium Lvl 4.2 meq/L 3.5 - 5.1 01/13/2012 Normal [facility] CHEMISTRY Chloride Lvl 101 meq/L 95 - 109 01/13/2012 Normal [facility] CHEMISTRY CO2 27 meq/L 24 - 32 01/13/2012 Normal [facility] CHEMISTRY Calcium Lvl 9.3 mg/dL 8.5 - 10.5 01/13/2012 Normal [facility] HEMATOLOGY PTT 36.0 s 22.9 - 35.8 01/13/2012 [place] 10Interpretive Data: Heparin Therapeutic Range: 57 - 92 Seconds [facility] HEMATOLOGY PT 14.2 s 12.0 - 14.7 01/13/2012 Normal [facility] HEMATOLOGY INR 1.08 0.85 - 1.17 01/13/2012 Normal 9Interpretive Data: RECOMMENDED RANGES FOR PROTIME INR: 2.0-3.0 for most medical and surgical thromboembolic states. 2.5-3.5 for artificial heart valves and recurrent embolism. INR SHOULD BE USED ONLY FOR PATIENTS ON STABLE ANTICOAGULANT THERAPY. [facility] HEMATOLOGY RBC 4.17 M/CMM 4.20 - 5.40 01/13/2012 LOW [facility] HEMATOLOGY WBC 7.1 K/CMM 3.7 - 10.4 01/13/2012 Normal [facility] HEMATOLOGY MPV 7.2 fL 7.4 - 10.4 01/13/2012 LOW [facility] HEMATOLOGY Platelet 223 K/CMM 133 - 450 01/13/2012 Normal [facility] HEMATOLOGY RDW 13.0 % 11.5 - 14.5 01/13/2012 Normal [facility] HEMATOLOGY Hct 40.4 % 36.0 - 48.0 01/13/2012 Normal [facility] HEMATOLOGY MCV 96.9 fL 81.0 - 99.0 01/13/2012 Normal [facility] HEMATOLOGY MCHC 34.4 g/dL 32.0 - 36.0 01/13/2012 [facility] HEMATOLOGY MCH 33.3 pg 27.0 - 31.0 01/13/2012 [facility] HEMATOLOGY Hgb 13.9 g/dL 12.0 - 16.0 01/13/2012 Normal [facility] HEMATOLOGY Eosinophils # 0.3 K/CMM 0.0 - 0.5 01/13/2012 Normal [facility] HEMATOLOGY Basophils # 0.0 K/CMM 0.0 - 0.2 01/13/2012 Normal [facility] HEMATOLOGY Segs-Bands # 3.2 K/CMM 1.5 - 8.1 01/13/2012 Normal [facility] HEMATOLOGY Monocytes # 0.6 K/CMM 0.0 - 0.8 01/13/2012 Normal [facility] HEMATOLOGY Lymphocytes # 3.0 K/CMM 1.0 - 5.5 01/13/2012 Normal [facility] HEMATOLOGY Monocytes 8.4 % 2.0 - 12.0 01/13/2012 Normal [facility] HEMATOLOGY Eosinophils 4.5 % 0.0 - 4.0 01/13/2012 [facility] HEMATOLOGY Basophils 0.6 % 0.0 - 1.0 01/13/2012 Normal [facility] HEMATOLOGY Segs 44.9 % 45.0 - 75.0 01/13/2012 LOW [facility] HEMATOLOGY Lymphocytes 41.6 % 20.0 - 40.0 01/13/2012 [facility] Vital Signs Vital Sign Value Date Comments Source Diastolic (mm Hg) 60 03/06/2014 [facility] Systolic (mm Hg) 125 03/06/2014 [facility] Systolic (mm Hg) 119 03/06/2014 [facility] Diastolic (mm Hg) 62 03/06/2014 [facility] Diastolic (mm Hg) 61 03/06/2014 [facility] Systolic (mm Hg) 116 03/06/2014 [facility] Temperature Oral (F) 99.0 F 03/06/2014 [facility] Weight 84.091 03/06/2014 [facility] Height 162.56 cm 03/06/2014 [facility] BMI Calculated 31.82 03/06/2014 [facility] Temperature Oral (F) 98.6 F 06/06/2012 [facility] Heart Rate 72 06/06/2012 [facility] Diastolic (mm Hg) 56 06/06/2012 [facility] Systolic (mm Hg) 122 06/06/2012 [facility] Respitory Rate 18 06/06/2012 [facility] Diastolic (mm Hg) 51 06/06/2012 [facility] Systolic (mm Hg) 123 06/06/2012 [facility] Respitory Rate 18 06/06/2012 [facility] Temperature Oral (F) 99.4 F 06/06/2012 [facility] Heart Rate 91 06/06/2012 [facility] Heart Rate 60 06/06/2012 [facility] Temperature Oral (F) 98.6 F 06/06/2012 [facility] Respitory Rate 18 06/06/2012 [facility] Diastolic (mm Hg) 58 06/06/2012 [facility] Systolic (mm Hg) 108 06/06/2012 [facility] Weight 96.364 06/05/2012 [facility] Height 162.56 cm 06/05/2012 [facility] Weight 96.364 05/31/2012 [facility] Height 162.56 cm 05/31/2012 [facility] Systolic (mm Hg) 140 01/14/2012 [facility] Diastolic (mm Hg) 72 01/14/2012 [facility] Respitory Rate 18 01/14/2012 [facility] Temperature Oral (F) 97.3 F 01/14/2012 [facility] Heart Rate 82 01/14/2012 [facility] Temperature Oral (F) 96.9 F 01/14/2012 [facility] Respitory Rate 18 01/14/2012 [facility] Diastolic (mm Hg) 64 01/14/2012 [facility] Heart Rate 88 01/14/2012 [facility] Systolic (mm Hg) 122 01/14/2012 [facility] Heart Rate 80 01/14/2012 [facility] Respitory Rate 18 01/14/2012 [facility] Systolic (mm Hg) 118 01/14/2012 [facility] Diastolic (mm Hg) 64 01/14/2012 [facility] Temperature Oral (F) 98.1 F 01/14/2012 [facility] Height 162.56 cm 01/13/2012 [facility] Weight 141.364 01/13/2012 [facility] Height 162.56 cm 01/13/2012 [facility] Encounters Location Location Details Encounter Type Encounter Number Reason For Visit Attending Provider ADM Date DC Date Status Source [facility] OU [id number] JOSE EDUARDO DEE 01/12/2012 01/14/2012 Active [facility] [id number] 723.1, CERVICAL PAIN, 724.2, ACUTE LOW BACK PAIN MARILIN EDUARDO 04/11/2012 Active [facility] OU [id number] MARILIN EDUARDO 06/05/2012 06/06/2012 Active [facility] Bedded Outpatient [id number] Juan Hematpour 03/06/2014 03/06/2014 [facility] [place] [facility] [id number] Jeffery Andersonr 02/11/2017 02/12/2017 [facility] [place] [facility] OSMAR [id number] CHF CONCHITA KANTHARIA Cancel [facility] DS [id number] ICD 575.80 / CPT 02423 AIDEE ALARCON Active [facility] TH [id number] 723.1, CERVICAL PAIN, 724.2, ACUTE LOW BACK PAIN MARILIN EDUARDO Cancel [facility] Procedures Procedure Code Date Perfomer Comments Source Colon operation<sup>1</sup> 20487602 resection OPI [place] [facility] [id number] [facility] [place] L[facility] [id number] [facility] [place] Nasal operation<sup>2</sup> [id number] deviated septum OPID [place] Colon operation <sup>1</sup> [id number] 1resection [facility] Hysterectomy [id number] [facility] Nasal operation <sup>2</sup> [id number] 2deviated septum [facility]
--- OUTSIDE RECORDS SUMMARY | 2018-04-13 07:23 | XMS REPORT | CCD ---
Author Author Auto Generated Organization [facility] Address Unknown Phone Unavailable Care Team Providers Care Analysis Internship Name Role Phone Syed Chandu CP Allergies, Adverse Reactions, Alerts Substance Reaction Status NKDA Active Problem List Condition Effective Dates Status Chest pain < 01/14/2012 Inactive Cough Active SOBOE - Shortness of breath on exertion < 01/14/2012 Inactive Medications Medication Instructions Start Date End Date Status simvastatin 20 mg, 1 tab, Route: PO, Drug form: 01/13/2012 01/14/2012 Discontinued TAB, Bedtime, Dosing Weight 141.364, kg, Start date: 01/13/12 21:00:00, Duration: 30 day, Stop date: 02/11/12 21:00:00 pantoprazole 40 mg, 1 tab, Route: PO, Drug form: 01/13/2012 01/14/2012 Discontinued ECTAB, Daily, Dosing Weight 141.364, kg, Start date: 01/13/12 9:00:00, Duration: 30 day, Stop date: 02/11/12 9:00:00 lisinopril 5 mg, 1 tab, Route: PO, Drug form: 01/13/2012 01/14/2012 Discontinued TAB, Daily, Dosing Weight 141.364, kg, Start date: 01/13/12 9:00:00, Duration: 30 day, Stop date: 02/11/12 9:00:00 levothyroxine 112 microgram, 1 tab, Route: PO, 01/13/2012 01/14/2012 Discontinued Drug form: TAB, Q630AM, Dosing Weight 141.364, kg, Start date: 01/13/12 6:30:00, Duration: 30 day, Stop date: 02/11/12 6:30:00 furosemide 40 mg 40 mg, 1 tab, Route: PO, Drug form: 01/13/2012 01/14/2012 Discontinued oral tablet TAB, TID, Dosing Weight 141.364, kg, Start date: 01/13/12 9:00:00, Duration: 30 day, Stop date: 02/11/12 17:00:00 gabapentin 600 mg 1,200 mg, 3 cap, Route: PO, Drug 01/13/2012 01/14/2012 Discontinued oral tablet form: CAP, BID, Dosing Weight 141.364, kg, Start date: 01/13/12 9:00:00, Duration: 30 day, Stop date: 02/11/12 17:00:00 Sodium Chloride 0.9% 216.6 mL, Rate: 31.25 ml/hr, Infuse 01/13/2012 01/14/2012 Discontinued IV 216.6 mL + over: 8 hr, Route: NEB, kg, Total albuterol 0.5% Volume: 250, Delivers inhalation solution 20mg/30ml/hour., Start date: 167 mg 01/13/12 5:29:00, Duration: 30 day, Stop date: 02/12/12 5:28:00 carvedilol 25 mg, 1 tab, Route: PO, Drug form: 01/13/2012 01/14/2012 Discontinued TAB, BID, Dosing Weight 141.364, kg, Start date: 01/13/12 9:00:00, Duration: 30 day, Stop date: 02/11/12 17:00:00 Tessalon Perles 100 mg, 1 cap, Route: PO, Drug 01/13/2012 01/14/2012 Discontinued form: CAP, TID, Dosing Weight 141.364, kg, Start date: 01/13/12 9:00:00, Duration: 30 day, Stop date: 02/11/12 17:00:00 aspirin 81 mg 81 mg, 1 tab, Route: PO, Drug form: 01/13/2012 01/14/2012 Discontinued tablet, enteric ECTAB, Daily, Dosing Weight coated 141.364, kg, Start date: 01/13/12 9:00:00, Duration: 30 day, Stop date: 02/11/12 9:00:00 Robitussin-DM 15 ml, Route: PO, Drug Form: LIQ, 01/14/2012 01/14/2012 Discontinued Dosing Weight 141.364, kg, Q8H, STAT, Start date: 01/14/12 13:19:00, Duration: 30 day, Stop date: 02/13/12 6:00:00 Omnipaque 350mg/ml 90 mL, Route: IVP, Drug Form: SOLN, 01/13/2012 01/13/2012 Completed Dosing Weight 141.364, kg, ONCALL, STAT, Start date: 01/13/12 12:15:00, Duration: 1 doses or times, Stop date: 01/13/12 15:00:00, Dose=2.2ml/kg, Max wsoc=[id number] Dose=2.2ml/kg, Max [id number]=[id number] DuoNeb inhalation 3 mL, Route: INHALATION, Drug Form: 01/14/2012 01/14/2012 Discontinued solution SOLN, Dosing Weight 141.364, kg, RQ6H, Start date: 01/14/12 14:00:00, Duration: 30 day, Stop date: 02/13/12 8:00:00, Tessalon Perles 100 mg, PO, TID, Substitution 01/12/2012 01/14/2012 Discontinued Allowed azithromycin 250 mg, PO, Daily, 500 mg day 1, 01/12/2012 Ordered Substitution Allowed 500 mg day 1 pantoprazole 40 mg 40 mg, 1 tab, PO, Daily, 30 tab, 3, 01/14/2012 05/13/2012 Ordered oral enteric coated 3, Substitution Allowed, ECTAB tablet levothyroxine 112 112 microgram, 1 cap, PO, Daily, 30 01/14/2012 05/13/2012 Ordered mcg (0.112 mg) oral cap, 3, 3, Substitution Allowed, capsule CAP methotrexate 10 mg 10 mg, 1 tab, PO, qWeek, on 01/14/2012 05/13/2012 Ordered oral tablet 5 tab, 3, 3, Substitution Allowed, TAB on tuesday Neurontin 300 mg 600 mg, 2 cap, PO, Bedtime, 60 cap, 01/14/2012 05/13/2012 Ordered oral capsule 3, 3, Substitution Allowed, CAP hydrALAZINE 10 mg, 0.5 mL, Route: IV, Drug 01/12/2012 01/14/2012 Discontinued form: INJ, Q2H, Dosing Weight 141.364, kg, PRN Other -See Comment, Start date: 01/12/12 20:26:00, Duration: 30 day, Stop date: 02/11/12 20:25:00, sbp > 150 gabapentin 600 mg 600 mg, 1 tab, PO, BID, 60 tab, 3, 01/14/2012 05/13/2012 Ordered oral tablet 3, Substitution Allowed, TAB furosemide 40 mg 40 mg, 1 tab, PO, TID, 90 tab, 3, 01/14/2012 05/13/2012 Ordered oral tablet 3, Substitution Allowed, TAB carvedilol 25 mg 25 mg, 1 tab, PO, BID, 60 tab, 3, 01/14/2012 05/13/2012 Ordered oral tablet 3, Substitution Allowed, TAB Tessalon Perles 100 100 mg, 1 cap, PO, TID, 15 cap, 01/14/2012 01/19/2012 Ordered mg oral capsule Substitution Allowed, CAP aspirin 81 mg 81 mg, 1 tab, PO, Daily, 30 tab, 3, 01/14/2012 05/13/2012 Ordered tablet, enteric 3, Substitution Allowed, ECTAB coated Vicodin ES 7.5/750 1 tab, PO, Q12H, PRN, for pain, 01/12/2012 Ordered oral tablet Substitution Allowed, Maintenance, TAB influenza virus 0.5 mL, Route: IM, Drug Form: INJ, 01/13/2012 01/13/2012 Pending vaccine, inactivated Daily, Start date: 01/13/12 Complete 9:00:00, Duration: 1 doses or times, Stop date: 01/13/12 9:00:00 pneumococcal 0.5 ml, Route: IM, Drug Form: INJ, 01/13/2012 01/13/2012 Pending 23-valent vaccine Daily, Start date: 01/13/12 Complete 9:00:00, Duration: 1 doses or times, Stop date: 01/13/12 9:00:00 docusate 100 mg, 1 cap, Route: PO, Drug 01/12/2012 01/14/2012 Discontinued form: CAP, BID, Dosing Weight 141.364, kg, Start date: 01/12/12 21:00:00, Duration: 30 day, Stop date: 02/11/12 9:00:00 predniSONE 60 mg, 3 tab, Route: PO, Drug form: 01/13/2012 01/14/2012 Discontinued TAB, Daily, Dosing Weight 141.364, kg, Priority: STAT, Start date: 01/13/12 10:48:00, Duration: 30 day, Stop date: 02/12/12 9:00:00 heparin 5,000 unit, 1 mL, Route: SUB-Q, 01/13/2012 01/14/2012 Discontinued Drug form: INJ, Q8H, Dosing Weight 141.364, kg, Start date: 01/13/12 0:00:00, Duration: 30 day, Stop date: 02/11/12 16:00:00 magnesium oxide 400 mg, 1 tab, Route: PO, Drug 01/14/2012 01/14/2012 Discontinued form: TAB, TID, Dosing Weight 141.364, kg, Start date: 01/14/12 17:00:00, Duration: 3 doses or times, Stop date: 01/15/12 13:00:00 potassium chloride 40 mEq, 2 tab, Route: PO, Drug 01/14/2012 01/14/2012 Completed form: ERTAB, ONCE, Dosing Weight 141.364, kg, Start date: 01/14/12 15:11:00, Stop date: 01/14/12 15:11:00 ipratropium 500 microgram, 2.5 mL, Route: NEB, 01/12/2012 01/14/2012 Discontinued Drug form: SOLN, RQ4H, Dosing Weight 141.364, kg, Priority: STAT, Start date: 01/12/12 22:29:00, Duration: 30 day, Stop date: 02/11/12 19:00:00 Advair Diskus 500 1 inhalation, INHALER, RQ12H, 1 ea, 01/14/2012 Ordered mcg-50 mcg Substitution Allowed, Maintenance, inhalation powder AERO albuterol 0.083% 2.49 mg, 3 mL, Route: NEB, Drug 01/12/2012 01/13/2012 Discontinued inhalation solution form: SOLN, Q4H, Dosing Weight 141.364, kg, Priority: STAT, Start date: 01/12/12 22:29:00, Duration: 30 day, Stop date: 02/11/12 20:00:00 Neurontin 600 mg, 2 cap, Route: PO, Drug 01/12/2012 01/14/2012 Discontinued form: CAP, Bedtime, Start date: 01/12/12 21:00:00, Duration: 30 day, Stop date: 02/10/12 21:00:00 Advair Diskus 500 1 inhalation, Route: INHALER, Drug 01/13/2012 01/14/2012 Discontinued mcg-50 mcg Form: AERO, Dosing Weight 141.364, inhalation powder kg, RQ12H, STAT, Start date: 01/13/12 6:09:00, Duration: 30 day, Stop date: 02/11/12 20:00:00 DuoNeb inhalation 3 mL, INHALATION, RQ6H, 01/14/2012 Ordered solution , 1 inhalation, Substitution Allowed, Maintenance, SOLN predniSONE 20 mg 20 mg, 1 tab, PO, Daily, 3 tab, 01/14/2012 01/17/2012 Ordered oral tablet Substitution Allowed, TAB simvastatin 20 mg 20 mg, 1 tab, PO, Bedtime, 30 tab, 01/14/2012 05/13/2012 Ordered oral tablet 3, 3, Substitution Allowed, TAB K-Dur 20 oral 20 mEq, 1 tab, PO, BID, 60 tab, 01/14/2012 Ordered tablet, extended Substitution Allowed, ERTAB release Vital Signs Most recent to oldest [Reference Range]: 1 2 3 Height 162.56 cm (01/13/2012 09:00:00) 162.56 cm (01/12/2012 18:12:00) Current Weight 93.182 kg (01/14/2012 08:49:00) 92.273 kg (01/13/2012 09:00:00) Temperature Oral [96.4-99.1 DegF] 97.3 DegF (01/14/2012 16:45:00) 96.9 DegF (01/14/2012 11:34:00) 98.1 DegF (01/14/2012 08:20:00) Systolic Blood Pressure [90-140 mmHg] 140 mmHg (01/14/2012 16:45:00) 122 mmHg (01/14/2012 11:34:00) 118 mmHg (01/14/2012 08:20:00) Diastolic Blood Pressure [60-90 mmHg] 72 mmHg (01/14/2012 16:45:00) 64 mmHg (01/14/2012 11:34:00) 64 mmHg (01/14/2012 08:20:00) Respiratory Rate [14-20 BRMIN] 18 BRMIN (01/14/2012 16:45:00) 18 BRMIN (01/14/2012 11:34:00) 18 BRMIN (01/14/2012 08:20:00) Peripheral Pulse Rate [60-100 bpm] 82 bpm (01/14/2012 16:45:00) 88 bpm (01/14/2012:34:00) 80 bpm (01/14/2012 08:20:00) Weight 141.364 kg (01/12/2012 18:12:00) Results BEDSIDE GLUCOSE TESTING Most recent to oldest [Reference Range]: 1 2 3 Gluc POC Lifscn [70-99 mg/dL] 130 mg/dL 1 *HI* (01/13/2012 03:36:00) 1Interpretive Data: Upper Reportable Limit: 200 mg/dL. URINALYSIS Most recent to oldest [Reference Range]: 1 2 3 UA Turbidity [Clear] Clear (01/12/2012 23:30:00) UA Color [Yellow] Yellow *NA* (01/12/2012 23:30:00) UA pH [5.0-8.0] 5.0 (01/12/2012 23:30:00) UA Spec Grav [<=1.030] 1.015 (01/12/2012 23:30:00) UA Glucose [Negative mg/dL] Negative mg/dL *NA* (01/12/2012 23:30:00) UA Blood [Negative] Negative (01/12/2012 23:30:00) UA Ketones [Negative mg/dL] Negative mg/dL *NA* (01/12/2012 23:30:00) UA Protein [Negative mg/dL] Negative mg/dL (01/12/2012 23:30:00) UA Urobilinogen [0.1-1.0 mg/dL] <=1.0 mg/dL *NA* (01/12/2012 23:30:00) UA Bili [Negative] Negative *NA* (01/12/2012 23:30:00) UA Leuk Est [Negative] Negative (01/12/2012 23:30:00) UA Nitrite [Negative] Negative (01/12/2012 23:30:00) UA WBC [0-5 /HPF] 3 /HPF *NA* (01/12/2012 23:30:00) UA RBC [0-2 /HPF] <1 /HPF *NA* (01/12/2012 23:30:00) UA Bacteria [None Seen /HPF] Moderate /HPF *ABN* (01/12/2012 23:30:00) UA Sq Epi [Few /LPF] Few /LPF *NA* (01/12/2012 23:30:00) UA Hyal Cast [0-2 /LPF] 3 /LPF *NA* (01/12/2012 23:30:00) UA Mucus [None Seen /LPF] Few /LPF *NA* (01/12/2012 23:30:00) CHEMISTRY Most recent to oldest [Reference Range]: 1 2 3 Sodium Lvl [135-145 mEq/L] 137 mEq/L (01/14/2012 04:40:00) 137 mEq/L (01/13/2012 05:00:00) 140 mEq/L (01/12/2012 18:54:00) Potassium Lvl [3.5-5.1 mEq/L] 3.7 mEq/L (01/14/2012 04:40:00) 3.7 mEq/L (01/13/2012 05:00:00) 4.2 mEq/L (01/12/2012 18:54:00) Chloride Lvl [95-109 mEq/L] 98 mEq/L (01/14/2012 04:40:00) 100 mEq/L (01/13/2012 05:00:00) 101 mEq/L (01/12/2012 18:54:00) CO2 [24-32 mEq/L] 28 mEq/L (01/14/2012 04:40:00) 28 mEq/L (01/13/2012 05:00:00) 27 mEq/L (01/12/2012 18:54:00) AGAP [10.0-20.0 mEq/L] 14.7 mEq/L (01/14/2012 04:40:00) 12.7 mEq/L (01/13/2012 05:00:00) 16.2 mEq/L (01/12/2012 18:54:00) Creatinine Lvl [0.5-1.4 mg/dL] 0.7 mg/dL (01/14/2012 04:40:00) 0.8 mg/dL (01/13/2012 05:00:00) 1.2 mg/dL (01/12/2012 18:54:00) eGFR 99 mL/min/1.73m2 2 *NA* (01/14/2012 04:40:00) 84 mL/min/1.73m2 3 *NA* (01/13/2012 05:00:00) 51 mL/min/1.73m2 4 *NA* (01/12/2012 18:54:00) BUN [7-22 mg/dL] 18 mg/dL (01/14/2012 04:40:00) 27 mg/dL *HI* (01/13/2012 05:00:00) 32 mg/dL *HI* (01/12/2012 18:54:00) Glucose Lvl [70-99 mg/dL] 145 mg/dL 5 *HI* (01/14/2012 04:40:00) 120 mg/dL 6 *HI* (01/13/2012 05:00:00) 166 mg/dL 7 *HI* (01/12/2012 18:54:00) Total Protein [6.4-8.4 g/dL] 7.3 g/dL (01/13/2012 05:00:00) Albumin Lvl [3.5-5.0 g/dL] 3.8 g/dL (01/13/2012 05:00:00) Globulin [2.0-4.0 g/dL] 3.5 g/dL (01/13/2012 05:00:00) A/G Ratio [0.7-1.6] 1.1 (01/13/2012 05:00:00) Calcium Lvl [8.5-10.5 mg/dL] 8.6 mg/dL (01/14/2012 04:40:00) 9.3 mg/dL (01/13/2012 05:00:00) 9.3 mg/dL (01/12/2012 18:54:00) Phosphorus [2.5-4.5 mg/dL] 3.2 mg/dL (01/14/2012 04:40:00) 5.0 mg/dL *HI* (01/13/2012 05:00:00) 5.7 mg/dL *HI* (01/12/2012 18:54:00) Magnesium Lvl [1.8-2.4 mg/dL] 1.8 mg/dL (01/14/2012 04:40:00) 1.8 mg/dL (01/13/2012 05:00:00) 1.9 mg/dL (01/12/2012 18:54:00) ALT [0-65 unit/L] 66 unit/L *HI* (01/13/2012 05:00:00) AST [0-37 unit/L] 58 unit/L *HI* (01/13/2012 05:00:00) Alk Phos [39-136 unit/L] 91 unit/L (01/13/2012 05:00:00) Bili Total [0.2-1.3 mg/dL] 0.6 mg/dL (01/13/2012 05:00:00) Bili Direct [0.0-0.3 mg/dL] 0.2 mg/dL (01/13/2012 05:00:00) Bili Indirect [0.0-1.0 mg/dL] 0.4 mg/dL (01/13/2012 05:00:00) Total CK [12-191 unit/L] 66 unit/L (01/13/2012 05:00:00) 68 unit/L (01/13/2012 00:00:00) Troponin-T [0.000-0.100 ng/mL] <0.010 ng/mL (01/13/2012 05:00:00) <0.010 ng/mL (01/13/2012 00:00:00) Troponin-I [0.00-0.40 ng/mL] <0.02 ng/mL (01/13/2012 05:00:00) <0.02 ng/mL (01/13/2012 00:00:00) <0.02 ng/mL (01/12/2012 18:54:00) BNP [<=100 pg/mL] <2 pg/mL 8 (01/12/2012 22:00:00) Ca Ion mgdL [4.65-5.20 mg/dL] 4.12 mg/dL *LOW* (01/13/2012 05:00:00) Ca Ion [1.16-1.30 mMol/L] 1.03 mMol/L *LOW* (01/13/2012 05:00:00) Ca Norm [1.16-1.30 mMol/L] 1.00 mMol/L *LOW* (01/13/2012 05:00:00) Ca Norm mgdL [4.65-5.20 mg/dL] 4.00 mg/dL *LOW* (01/13/2012 05:00:00) 2Result Comment: The eGFR is calculated using [...] from the National Kidney Disease Education Program ( NKDEP) which additionally recommends that when the eGFR is used in patients with extremes of body mass index for purposes of drug dosing, the eGFR should be mul tiplied by the estimated BMI. 3Result Comment: The eGFR is calculated using [...] from the National Kidney Disease Education Program ( NKDEP) which additionally recommends that when the eGFR is used in patients with extremes of body mass index for purposes of drug dosing, the eGFR should be mul tiplied by the estimated BMI. 4Result Comment: The eGFR is calculated using [...] from the National Kidney Disease Education Program ( NKDEP) which additionally recommends that when the eGFR is used in patients with extremes of body mass index for purposes of drug dosing, the eGFR should be mul tiplied by the estimated BMI. 5Interpretive Data: Adult reference range values reflect the clinical guidelines of the [place] [employer]. 6Interpretive Data: Adult reference range values reflect the clinical guidelines of the [place] [employer]. 7Interpretive Data: Adult reference range values reflect the clinical guidelines of the [place] [employer]. 8Interpretive Data: Elevated results are in line with increasing severity of congestive heart failure. Minor elevations between 100 and 300 may be seen with Myocardial Ischemia, Sodium retaining drugs, and compensated/treated heart failure. HEMATOLOGY Most recent to oldest [Reference Range]: 1 2 3 WBC [3.7-10.4 K/CMM] 7.2 K/CMM (01/14/2012 04:40:00) 6.1 K/CMM (01/13/2012 05:00:00) 7.1 K/CMM (01/12/2012 18:54:00) RBC [4.20-5.40 M/CMM] 3.78 M/CMM *LOW* (01/14/2012 04:40:00) 3.84 M/CMM *LOW* (01/13/2012 05:00:00) 4.17 M/CMM *LOW* (01/12/2012 18:54:00) Hgb [12.0-16.0 g/dL] 12.7 g/dL (01/14/2012 04:40:00) 12.6 g/dL (01/13/2012 05:00:00) 13.9 g/dL (01/12/2012 18:54:00) Hct [36.0-48.0 %] 36.0 % (01/14/2012 04:40:00) 36.9 % (01/13/2012 05:00:00) 40.4 % (01/12/2012 18:54:00) MCV [81.0-99.0 fL] 95.2 fL (01/14/2012 04:40:00) 95.9 fL (01/13/2012 05:00:00) 96.9 fL (01/12/2012 18:54:00) MCH [27.0-31.0 pg] 33.8 pg *HI* (01/14/2012 04:40:00) 32.8 pg *HI* (01/13/2012 05:00:00) 33.3 pg *HI* (01/12/2012 18:54:00) MCHC [32.0-36.0 g/dL] 35.4 g/dL (01/14/2012 04:40:00) 34.1 g/dL (01/13/2012 05:00:00) 34.4 g/dL (01/12/2012 18:54:00) RDW [11.5-14.5 %] 13.8 % (01/14/2012 04:40:00) 13.8 % (01/13/2012 05:00:00) 13.0 % (01/12/2012 18:54:00) Platelet [133-450 K/CMM] 213 K/CMM (01/14/2012 04:40:00) 176 K/CMM (01/13/2012 05:00:00) 223 K/CMM (01/12/2012 18:54:00) MPV [7.4-10.4 fL] 7.7 fL (01/14/2012 04:40:00) 7.3 fL *LOW* (01/13/2012 05:00:00) 7.2 fL *LOW* (01/12/2012 18:54:00) Segs [45.0-75.0 %] 59.1 % (01/14/2012 04:40:00) 37.1 % *LOW* (01/13/2012 05:00:00) 44.9 % *LOW* (01/12/2012 18:54:00) Lymphocytes [20.0-40.0 %] 30.7 % (01/14/2012 04:40:00) 48.4 % *HI* (01/13/2012 05:00:00) 41.6 % *HI* (01/12/2012 18:54:00) Monocytes [2.0-12.0 %] 9.6 % (01/14/2012 04:40:00) 7.6 % (01/13/2012 05:00:00) 8.4 % (01/12/2012 18:54:00) Eosinophils [0.0-4.0 %] 0.1 % (01/14/2012 04:40:00) 5.8 % *HI* (01/13/2012 05:00:00) 4.5 % *HI* (01/12/2012 18:54:00) Basophils [0.0-1.0 %] 0.5 % (01/14/2012 04:40:00) 1.1 % *HI* (01/13/2012 05:00:00) 0.6 % (01/12/2012 18:54:00) Segs-Bands # [1.5-8.1 K/CMM] 4.3 K/CMM (01/14/2012 04:40:00) 2.2 K/CMM (01/13/2012 05:00:00) 3.2 K/CMM (01/12/2012 18:54:00) Lymphocytes # [1.0-5.5 K/CMM] 2.2 K/CMM (01/14/2012 04:40:00) 2.9 K/CMM (01/13/2012 05:00:00) 3.0 K/CMM (01/12/2012 18:54:00) Monocytes # [0.0-0.8 K/CMM] 0.7 K/CMM (01/14/2012 04:40:00) 0.5 K/CMM (01/13/2012 05:00:00) 0.6 K/CMM (01/12/2012 18:54:00) Eosinophils # [0.0-0.5 K/CMM] 0.3 K/CMM (01/13/2012 05:00:00) 0.3 K/CMM (01/12/2012 18:54:00) Basophils # [0.0-0.2 K/CMM] 0.1 K/CMM (01/13/2012 05:00:00) 0.0 K/CMM (01/12/2012 18:54:00) PT [12.0-14.7 seconds] 14.2 seconds (01/12/2012 18:54:00) INR [0.85-1.17] 1.08 9 (01/12/2012 18:54:00) PTT [22.9-35.8 seconds] 36.0 seconds 10 *HI* (01/12/2012 18:54:00) 9Interpretive Data: RECOMMENDED RANGES FOR PROTIME INR: 2.0-3.0 for most medical and surgical thromboembolic states. 2.5-3.5 for artificial heart valves and recurrent embolism. INR SHOULD BE USED ONLY FOR PATIENTS ON STABLE ANTICOAGULANT THERAPY. 10Interpretive Data: Heparin Therapeutic Range: 57 - 92 Seconds
--- OUTSIDE RECORDS SUMMARY | 2018-04-13 07:24 | XMS REPORT | CCD ---
Author Author Auto Generated Organization [facility] Address Unknown Phone Unavailable Care Team Providers Care Research Pharmacist Name Role Phone Jim Clark CP Allergies, Adverse Reactions, Alerts Substance Reaction Status NKDA Active Problem List Condition Effective Dates Status Chest pain < 01/14/2012 Inactive CHF - Congestive heart failure Active Cough Active Depression Active Diabetes mellitus Active GERD - Gastro-esophageal reflux disease Active HLD - Hyperlipidemia Active HTN - Hypertension Active Hypothyroidism Active JOEL - Obstructive sleep apnea Active Pacemaker catheter, device Active Pain Active SOBOE - Shortness of breath on exertion < 01/14/2012 Inactive
--- OUTSIDE RECORDS SUMMARY | 2018-04-13 07:24 | XMS REPORT | CCD ---
Author Author Auto Generated Organization [facility] Address Unknown Phone Unavailable Care Team Providers Care Musculoskeletal Physiotherapist Name Role Phone Jim Clark RP Allergies, Adverse Reactions, Alerts Substance Reaction Status [...] Medication Instructions Start Date End Date Status aspirin Substitution Allowed 06/05/2012 Ordered Neurontin 600 mg, 2 cap, Route: PO, Drug 06/05/2012 06/07/2012 Discontinued form: CAP, Bedtime, Start date: 06/05/12 21:00:00, Duration: 30 day, Stop date: 07/04/12 21:00:00 morphine Sulfate 2 mg, 1 mL, Route: IVP, Drug form: 06/05/2012 06/07/2012 Discontinued INJ, Q2H, Dosing Weight 96.364, kg, PRN Pain, Start date: 06/05/12 15:13:00, Duration: 30 day, Stop date: 07/05/12 15:12:00 naloxone 0.04 mg, 0.1 mL, Route: IVP, Drug 06/05/2012 06/05/2012 Discontinued form: INJ, Q2MIN, Dosing Weight 96.364, kg, PRN Narcotic Reversal, Start date: 06/05/12 15:56:00, Duration: 8 doses or times, Stop date: 06/06/12 0:00:00 hydromorphone 0.5 mg, 0.25 mL, Route: IVP, Drug 06/05/2012 06/05/2012 Discontinued form: INJ, Q5Min, Dosing Weight 96.364, kg, PRN Pain Score 4-6, Start date: 06/05/12 15:56:00, Duration: 5 doses or times, Stop date: 06/06/12 0:00:00 ondansetron 4 mg, 2 mL, Route: IVP, Drug form: 06/05/2012 06/05/2012 Discontinued INJ, ONCE, Dosing Weight 96.364, kg, PRN Nausea & Vomiting, Start date: 06/05/12 15:56:00 flumazenil 0.2 mg, 2 mL, Route: IVP, Drug 06/05/2012 06/05/2012 Discontinued form: INJ, PRN, Dosing Weight 96.364, kg, PRN Benzodiazepine Reversal, Initial dose, Start date: 06/05/12 15:56:00, Duration: 1 day, Stop date: 06/06/12 15:55:00 hydrALAZINE 5 mg, 0.25 mL, Route: IVP, Drug 06/05/2012 06/05/2012 Discontinued form: INJ, Q5Min, Dosing Weight 96.364, kg, PRN Elevated BP, Start date: 06/05/12 15:56:00, Duration: 4 doses or times, Stop date: 06/06/12 0:00:00 labetalol 5 mg, 1 mL, Route: IVP, Drug form: 06/05/2012 06/05/2012 Discontinued INJ, Q5Min, Dosing Weight 96.364, kg, PRN Elevated BP, Start date: 06/05/12 15:56:00, Duration: 5 doses or times, Stop date: 06/06/12 0:00:00 [place] 10/325 oral 1 tab, Route: PO, Drug Form: TAB, 06/05/2012 06/07/2012 Discontinued tablet Dosing Weight 96.364, kg, Q4H, PRN Pain, Start date: 06/05/12 15:13:00, Duration: 30 day, Stop date: 07/05/12 15:12:00 Benadryl 12.5 mg, 0.25 mL, Route: IV, Drug 06/05/2012 06/07/2012 Discontinued form: INJ, Q8H, Dosing Weight 96.364, kg, PRN Itching, Start date: 06/05/12 15:15:00, Duration: 30 day, Stop date: 07/05/12 15:14:00 Zofran 4 mg, 1 tab, Route: PO, Drug form: 06/05/2012 06/07/2012 Discontinued TAB, Q8H, Dosing Weight 96.364, kg, PRN Nausea, Start date: 06/05/12 15:12:00, Duration: 30 day, Stop date: 07/05/12 15:11:00 Neurontin 1,200 mg, 3 cap, Route: PO, Drug 06/06/2012 06/07/2012 Discontinued form: CAP, BID, Start date: 06/06/12 9:00:00, Duration: 30 day, Stop date: 07/05/12 17:00:00 clindamycin 900 mg, 6 mL, Route: IVPB, Drug 06/05/2012 06/07/2012 Discontinued form: INJ, ABXQ8H, Dosing Weight 96.364, kg, Start date: 06/05/12 16:00:00, Duration: 30 day, Stop date: 07/05/12 8:00:00 Colace 100 mg oral 100 mg, 1 cap, Route: PO, Drug 06/05/2012 06/07/2012 Discontinued capsule form: CAP, BID, Dosing Weight 96.364, kg, Start date: 06/05/12 17:00:00, Duration: 30 day, Stop date: 07/05/12 9:00:00 Advair Diskus 250 1 puff, INHALATION, BID, 28 ea, 05/31/2012 Ordered mcg-50 mcg Substitution Allowed, Maintenance, inhalation powder PWDR pantoprazole 40 mg, PO, Daily, 30 tab, 05/31/2012 06/30/2012 Ordered Substitution Allowed Cleocin Phosphate 900 mg, 6 mL, Route: IV, Drug form: 06/05/2012 06/05/2012 Ordered INJ, ONCE, Start date: 06/05/12 8:15:00, Stop date: 06/05/12 8:15:00 simvastatin 20 mg 20 mg, 1 tab, PO, Bedtime, 30 tab, 05/31/2012 Ordered oral tablet Substitution Allowed methotrexate 2.5 mg PO, 4 times/week, Substitution 05/31/2012 06/06/2012 Discontinued oral tablet Allowed 4 times/week potassium chloride 20 mEq, 1 tab, PO, BID, 10 tab, 05/31/2012 Ordered 20 mEq oral tablet, Substitution Allowed extended release Lasix 40 mg oral 40 mg, 1 tab, PO, Daily, 90 tab, 05/31/2012 Ordered tablet Substitution Allowed, TAB carvedilol 25 mg 25 mg, 1 tab, PO, BID, 180 tab, 05/31/2012 Ordered oral tablet Substitution Allowed, TAB levothyroxine 112 PO, Daily, Substitution Allowed 05/31/2012 Ordered mcg (0.112 mg) oral capsule methadone 5 mg, 0.5 mL, Route: IV, Drug form: 06/05/2012 06/05/2012 Ordered INJ, ONCE, Dosing Weight 96.364, kg, Start date: 06/05/12 12:28:00, Stop date: 06/05/12 12:28:00 lisinopril 5 mg oral 5 mg, 1 tab, PO, Daily, 30 tab, 05/31/2012 Ordered tablet Substitution Allowed, TAB tizanidine 4 mg, 1 tab, Route: PO, Drug form: 06/05/2012 06/07/2012 Discontinued TAB, BID, Dosing Weight 96.364, kg, Start date: 06/05/12 17:00:00, Duration: 30 day, Stop date: 07/05/12 9:00:00 simvastatin 20 mg, 1 tab, Route: PO, Drug form: 06/05/2012 06/07/2012 Discontinued TAB, Bedtime, Dosing Weight 96.364, kg, Start date: 06/05/12 21:00:00, Duration: 30 day, Stop date: 07/04/12 21:00:00 Januvia 100 mg, 1 tab, Route: PO, Drug 06/06/2012 06/07/2012 Discontinued form: TAB, Daily, Dosing Weight 96.364, kg, Start date: 06/06/12 9:00:00, Duration: 30 day, Stop date: 07/05/12 9:00:00 pantoprazole 40 mg, 1 tab, Route: PO, Drug form: 06/06/2012 06/07/2012 Discontinued ECTAB, Daily, Dosing Weight 96.364, kg, Start date: 06/06/12 9:00:00, Duration: 30 day, Stop date: 07/05/12 9:00:00 potassium chloride 20 mEq, 1 tab, Route: PO, Drug 06/05/2012 06/07/2012 Discontinued 20 mEq oral tablet, form: ERTAB, BID, Dosing Weight extended release 96.364, kg, Start date: 06/05/12 17:00:00, Duration: 30 day, Stop date: 07/05/12 9:00:00 metFORmin 500 mg 1,000 mg, 2 tab, Route: PO, Drug 06/05/2012 06/07/2012 Discontinued oral tablet form: TAB, BID, Dosing Weight 96.364, kg, Start date: 06/05/12 17:00:00, Duration: 30 day, Stop date: 07/05/12 9:00:00 lisinopril 5 mg, 1 tab, Route: PO, Drug form: 06/06/2012 06/07/2012 Discontinued TAB, Daily, Dosing Weight 96.364, kg, Start date: 06/06/12 9:00:00, Duration: 30 day, Stop date: 07/05/12 9:00:00 levothyroxine 112 microgram, 1 tab, Route: PO, 06/06/2012 06/07/2012 Discontinued Drug form: TAB, Q630AM, Dosing Weight 96.364, kg, Start date: 06/06/12 6:30:00, Duration: 30 day, Stop date: 07/05/12 6:30:00 Lasix 40 mg oral 40 mg, 1 tab, Route: PO, Drug form: 06/05/2012 06/07/2012 Discontinued tablet TAB, Daily, Dosing Weight 96.364, kg, Start date: 06/05/12 18:30:00, Duration: 30 day, Stop date: 07/05/12 9:00:00 gabapentin 600 mg Route: PO, Drug form: TAB, BID, 06/05/2012 06/05/2012 Deleted oral tablet Dosing Weight 96.364, kg, Start date: 06/05/12 17:00:00, Duration: 30 day, Stop date: 07/05/12 9:00:00 Veramyst 27.5 1 inhalation, Route: NASAL, Drug 06/06/2012 06/07/2012 Discontinued mcg/inh nasal spray Form: SPRY, Dosing Weight 96.364, kg, Daily, Start date: 06/06/12 9:00:00, Duration: 30 day, Stop date: 07/05/12 9:00:00 citalopram 40 mg, 2 tab, Route: PO, Drug form: 06/06/2012 06/07/2012 Discontinued TAB, Daily, Dosing Weight 96.364, kg, Start date: 06/06/12 9:00:00, Duration: 30 day, Stop date: 07/05/12 9:00:00 Advair Diskus 250 1 inhalation, Route: INHALATION, 06/05/2012 06/07/2012 Discontinued mcg-50 mcg Drug Form: AERO, Dosing Weight inhalation powder 96.364, kg, BID, Start date: 06/05/12 17:00:00, Duration: 30 day, Stop date: 07/05/12 9:00:00 carvedilol 25 mg, 1 tab, Route: PO, Drug form: 06/05/2012 06/07/2012 Discontinued TAB, BID, Dosing Weight 96.364, kg, Start date: 06/05/12 17:00:00, Duration: 30 day, Stop date: 07/05/12 9:00:00 Probiotic Formula PO, Daily, Substitution Allowed, 05/31/2012 Ordered oral capsule Maintenance Vital Signs Most recent to oldest [Reference Range]: 1 2 3 Height 162.56 cm (06/05/2012 08:15:00) 162.56 cm (05/31/2012 15:37:00) Temperature Oral [96.4-99.1 DegF] 98.6 DegF (06/06/2012 16:18:00) 99.4 DegF *HI* (06/06/2012 11:40:00) 98.6 DegF (06/06/2012 09:03:00) Systolic Blood Pressure [90-140 mmHg] 122 mmHg (06/06/2012 16:18:00) 123 mmHg (06/06/2012 11:40:00) 108 mmHg (06/06/2012 09:03:00) Diastolic Blood Pressure [60-90 mmHg] 56 mmHg *LOW* (06/06/2012 16:18:00) 51 mmHg *LOW* (06/06/2012 11:40:00) 58 mmHg *LOW* (06/06/2012 09:03:00) Respiratory Rate [14-20 BRMIN] 18 BRMIN (06/06/2012 16:18:00) 18 BRMIN (06/06/2012 11:40:00) 18 BRMIN (06/06/2012 09:03:00) Peripheral Pulse Rate [60-100 bpm] 72 bpm (06/06/2012 16:18:00) 91 bpm (06/06/2012 11:40:00) 60 bpm (06/06/2012 09:03:00) Weight 96.364 kg (06/05/2012 08:15:00) 96.364 kg (05/31/2012 15:37:00) Results BEDSIDE GLUCOSE TESTING Most recent to oldest [Reference Range]: 1 2 3 Gluc POC [place] [70-99 mg/dL] 117 mg/dL 1 *HI* (06/06/2012 06:22:00) 145 mg/dL 2 *HI* (06/05/2012 21:00:00) 137 mg/dL 3 *HI* (06/05/2012 17:24:00) Comment1 Notify RN/MD *NA* (06/06/2012 06:22:00) Notify RN/MD *NA* (06/05/2012 21:00:00) 1Interpretive Data: Upper Reportable Limit: 200 mg/dL. 2Interpretive Data: Upper Reportable Limit: 200 mg/dL. 3Interpretive Data: Upper Reportable Limit: 200 mg/dL. BLOOD BANK RESULTS Most recent to oldest [Reference Range]: 1 2 3 ABO/Rh A POS *Unknown* (06/05/2012 08:15:00) Antibody Scrn Negative (06/05/2012 08:15:00) CHEMISTRY Most recent to oldest [Reference Range]: 1 2 3 POC A Hct [36.0-48.0 %] 35.0 % *LOW* (06/05/2012 15:04:00) POC A Ca Ion [1.16-1.30 mMol/L] 1.07 mMol/L *LOW* (06/05/2012 15:04:00) POC A K [3.5-5.1 mEq/L] 3.7 mEq/L (06/05/2012 15:04:00) POC A Source ART *NA* (06/05/2012 15:04:00) POC A Temp 37.0 DegC *NA* (06/05/2012 15:04:00) POC A pH [7.35-7.45] 7.43 (06/05/2012 15:04:00) POC A PCO2 [35-45 mmHg] 44 mmHg (06/05/2012 15:04:00) POC A PO2 [80-100 mmHg] 211 mmHg *HI* (06/05/2012 15:04:00) POC A HCO3 [22-26 mMol/L] 29 mMol/L *HI* (06/05/2012 15:04:00) POC A BE [-2-2 mMol/L] 4 mMol/L *HI* (06/05/2012 15:04:00) POC A O2 Sat [95.0-100.0 %] 100.0 % (06/05/2012:04:00) POC A Glu [70-99 mg/dL] 94 mg/dL (06/05/2012 15:04:00) POC A LA [0.5-2.2 mMol/L] 1.5 mMol/L (06/05/2012 15:04:00) POC A Na [135-145 mEq/L] 141 mEq/L (06/05/2012 15:04:00) HEMATOLOGY Most recent to oldest [Reference Range]: 1 2 3 PT [12.0-14.7 seconds] 15.1 seconds *HI* (05/31/2012 11:00:00) INR [0.85-1.17] 1.17 4 (05/31/2012 11:00:00) PTT [22.9-35.8 seconds] 37.4 seconds 5 *HI* (05/31/2012 11:00:00) 4Interpretive Data: RECOMMENDED RANGES FOR PROTIME INR: 2.0-3.0 for most medical and surgical thromboembolic states. 2.5-3.5 for artificial heart valves and recurrent embolism. INR SHOULD BE USED ONLY FOR PATIENTS ON STABLE ANTICOAGULANT THERAPY. 5Interpretive Data: Heparin Therapeutic Range: 57 - 92 Seconds Procedures Procedures Date Related Diagnosis Colon operation 1 Hysterectomy Nasal operation 2 1resection 2deviated septum
--- OUTSIDE RECORDS SUMMARY | 2018-04-13 07:24 | XMS REPORT | Summary of Care ---
Author Organization Unknown Address Unknown Phone Unavailable Encounter MELIDA Jarrell(YOAN) [id number] Date(s): 03/06/14 - 03/06/[address] Discharge Disposition: Home Physician Attending: Juan Jay MD Physician Admitting: Juan Jay MD Physician_Referring: Juan Jay MD Reason for Visit CHRONIC COMBINED SYSTOLIC AND DIASTOLIC HF Vital Signs 1 2 3 Most recent to oldest [Reference Range]: 162.56 cm (03/06/14 8:37 AM) Height 99.0 DegF (03/06/14 9:23 AM) Temperature Oral [96.4-99.1 DegF] 125 mmHg (03/06/14 4:45 PM) 119 mmHg (03/06/14 4:30 PM) 116 mmHg (03/06/14 4:15 PM) Systolic Blood Pressure [90-140 mmHg] 60 mmHg (03/06/14 4:45 PM) 62 mmHg (03/06/14 4:30 PM) 61 mmHg (03/06/14 4:15 PM) Diastolic Blood Pressure [60-90 mmHg] 84.091 kg (03/06/14 8:37 AM) Weight 31.82 m2 (03/06/14 8:37 AM) Body Mass Index Problem List Condition Effective Dates Status Health Status Informant CHF - Congestive Active heart failure(Confirmed) Cough(Confirmed) Active Depression(Confirmed Active ) Diabetes Active mellitus(Confirmed) GERD - Active Gastro-esophageal reflux disease(Confirmed) HLD - Active Hyperlipidemia(Confi rmed) HTN - Active Hypertension(Confirm ed) Hypothyroidism(Confi Active rmed) JOEL - Obstructive Active sleep apnea(Confirmed) Pacemaker catheter, Active device(Confirmed) Pain(Confirmed) Active Allergies, Adverse Reactions, Alerts Substance Reaction Severity Status NKDA Active Medications acetaminophen-hydrocodone 325 mg-5 mg oral tablet 1 tab, Route: PO, Drug Form: TAB, Dosing Weight 84.091, kg, Q4H, PRN Pain Score 1-5, Start date: 03/06/14 13:16:00, Duration: 30 day, Stop date: 04/05/14 13:15: 00 Notes: (Same as: [place] 325/5) Do not exceed 4gm/day of acetaminophen. Start Date: 03/06/14 Stop Date: 03/06/14 Status: Discontinued acetaminophen-hydrocodone 325 mg-5 mg oral tablet 2 tab, Route: PO, Drug Form: TAB, Dosing Weight 84.091, kg, Q4H, PRN Pain Score 6-10, Start date: 03/06/14 13:16:00, Duration: 30 day, Stop date: 04/05/14 13:15 :00 Notes: (Same as: [place] 325/5) Do not exceed 4gm/day of acetaminophen. Start Date: 03/06/14 Stop Date: 03/06/14 Status: Discontinued aspirin 81 mg tablet, enteric coated 81 mg, 1 tab, Route: PO, Drug form: ECTAB, Daily, Dosing Weight 84.091, kg, Star t date: 03/07/14 9:00:00, Duration: 30 day, Stop date: 04/05/14 9:00:00 Notes: Do not crush or chew.(Same As: Ecotrin) Start Date: 03/07/14 Stop Date: 03/06/14 Status: Canceled carvedilol 25 mg, 1 tab, Route: PO, Drug form: TAB, BID, Dosing Weight 84.091, kg, Start da te: 03/06/14 17:00:00, Duration: 30 day, Stop date: 04/05/14 9:00:00 Notes: Give with food. (Same As: Coreg) Start Date: 03/06/14 Stop Date: 03/06/14 Status: Discontinued gabapentin 600 mg oral tablet 600 mg=1 tab, PO, TID, # 270 tab, 0 Refill(s) Start Date: 03/06/14 Status: Ordered gabapentin 600 mg oral tablet 600 mg, 2 cap, Route: PO, Drug form: CAP, TID, Dosing Weight 84.091, kg, Start d ate: 03/06/14 17:00:00, Duration: 30 day, Stop date: 04/05/14 13:00:00 Notes: (Same as: Neurontin) Start Date: 03/06/14 Stop Date: 03/06/14 Status: Discontinued ibuprofen 800 mg, 1 tab, Route: PO, Drug form: TAB, TID, Dosing Weight 84.091, kg, Start d ate: 03/06/14 17:00:00, Duration: 30 day, Stop date: 04/05/14 13:00:00 Notes: (Same as: Motrin)"Do Not Crush" Take with food. Start Date: 03/06/14 Stop Date: 03/06/14 Status: Discontinued ibuprofen 800 mg oral tablet 800 mg=1 tab, PO, TID, # 270 tab, 0 Refill(s) Start Date: 03/06/14 Status: Ordered Lasix 40 mg oral tablet 40 mg, 1 tab, Route: PO, Drug form: TAB, TID, Dosing Weight 84.091, kg, Start da te: 03/06/14 17:00:00, Duration: 30 day, Stop date: 04/05/14 13:00:00 Notes: (Same as: Lasix) May cause GI upset. Give with food or milk. Start Date: 03/06/14 Stop Date: 03/06/14 Status: Discontinued levothyroxine 150 microgram, 1 tab, Route: PO, Drug form: TAB, Daily, Dosing Weight 84.091, kg , Start date: 03/07/14 9:00:00, Duration: 30 day, Stop date: 04/05/14 9:00:00 Notes: Take 1 hour before or 2 hours after meal; Enteral feeds may interefere wi th the absorption of this medication. (Same as: Levothroid) Start Date: 03/07/14 Stop Date: 03/06/14 Status: Canceled levothyroxine 150 mcg (0.15 mg) oral tablet 150 microgram=1 tab, PO, Daily, # 30 tab, 0 Refill(s) Start Date: 03/06/14 Status: Ordered lisinopril 10 mg, 1 tab, Route: PO, Drug form: TAB, Daily, Dosing Weight 84.091, kg, Start date: 03/07/14 9:00:00, Duration: 30 day, Stop date: 04/05/14 9:00:00 Notes: (Same as: ivDejan omerstril) Start Date: 03/07/14 Stop Date: 03/06/14 Status: Canceled metFORMIN 500 mg oral tablet 1,000 mg, 2 tab, Route: PO, Drug form: TAB, BID, Dosing Weight 84.091, kg, Start date: 03/06/14 17:00:00, Duration: 30 day, Stop date: 04/05/14 9:00:00 Notes: (Same as: Glucophage) Take with meal Start Date: 03/06/14 Stop Date: 03/06/14 Status: Discontinued methotrexate 2.5 mg oral tablet 3 times per week, 0 Refill(s) Special Instructions: 3 times per week Start Date: 03/06/14 Status: Ordered morphine Sulfate 2 mg, 1 mL, Route: IVP, Drug form: INJ, Q15Min, Dosing Weight 84.091, kg, PRN Ch est Pain, Start date: 03/06/14 13:16:00, Duration: 2 doses or times, Stop date: Limited # of times Notes: (Same as:MORPhine Sulfate) Start Date: 03/06/14 Stop Date: 03/06/14 Status: Discontinued pantoprazole 40 mg, 1 tab, Route: PO, Drug form: ECTAB, Daily, Dosing Weight 84.091, kg, Star t date: 03/07/14 9:00:00, Duration: 30 day, Stop date: 04/05/14 9:00:00 Notes: Tablet should not be chewed or crushed.(Same as: Protonix) Start Date: 03/07/14 Stop Date: 03/06/14 Status: Canceled Saline Flush 0.9% 10 ml, Route: IVP, Drug Form: INJ, Dosing Weight 84.091, kg, PRN, PRN Line Flush , Start date: 03/06/14 13:16:00, Duration: 30 day, Stop date: 04/05/14 13:15:00 Notes: (Same as: BD Posiflush) Start Date: 03/06/14 Stop Date: 03/06/14 Status: Discontinued Saline Flush 0.9% 10 ml, Route: IVP, Drug Form: INJ, Dosing Weight 84.091, kg, Q12H, Start date: 0 03/06/14 21:00:00, Duration: 30 day, Stop date: 04/05/14 9:00:00 Notes: (Same as: BD Posiflush) Start Date: 03/06/14 Stop Date: 03/06/14 Status: Canceled simvastatin 20 mg, 1 tab, Route: PO, Drug form: TAB, Bedtime, Dosing Weight 84.091, kg, Star t date: 03/06/14 21:00:00, Duration: 30 day, Stop date: 04/04/14 21:00:00 Notes: (Same as: Zocor) Start Date: 03/06/14 Stop Date: 03/06/14 Status: Canceled Sodium Chloride 0.9% IV 1,000 mL 1,000 mL, Rate: 50 ml/hr, Infuse over: 20 hr, Route: IV, Dosing Weight 84.091 kg , Total Volume: 1,000, Start date: 03/06/14 8:44:00, Duration: 30 day, Stop date : 04/05/14 8:43:00 Start Date: 03/06/14 Stop Date: 03/06/14 Status: Discontinued Results BLOOD BANK RESULTS Most recent to 1 oldest [Reference Range]: ABO/Rh A POS *Unknown* (03/06/14 8:46 AM) Antibody Scrn Negative (03/06/14 8:46 AM) ELECTROLYTES Most recent to 1 oldest [Reference Range]: Sodium Lvl [135-145 140 mEq/L mEq/L] (03/06/14 8:46 AM) Potassium Lvl 4.3 mEq/L [3.5-5.1 mEq/L] (03/06/14 8:46 AM) Chloride Lvl [95-109 101 mEq/L mEq/L] (03/06/14 8:46 AM) CO2 [24-32 mEq/L] 32 mEq/L (03/06/14 8:46 AM) AGAP [10.0-20.0 11.3 mEq/L mEq/L] (03/06/14 8:46 AM) CHEM PANEL Most recent to 1 oldest [Reference Range]: Creatinine Lvl 0.7 mg/dL [0.5-1.4 mg/dL] (03/06/14 8:46 AM) eGFR 97 mL/min/1.73m2 1 *NA* (03/06/14 8:46 AM) BUN [7-22 mg/dL] 13 mg/dL (03/06/14 8:46 AM) Glucose Lvl [70-99 232 mg/dL 2 mg/dL] *HI* (03/06/14 8:46 AM) Calcium Lvl 9.2 mg/dL [8.5-10.5 mg/dL] (03/06/14 8:46 AM) Magnesium Lvl 1.9 mg/dL [1.8-2.4 mg/dL] (03/06/14 8:46 AM) 1Result Comment: The eGFR is calculated using [...] be mul tiplied by the estimated BMI. 2Interpretive Data: Adult reference range values reflect the clinical guidelines of the [place] [employer]. HEMATOLOGY Most recent to 1 oldest [Reference Range]: WBC [3.7-10.4 K/CMM] 6.9 K/CMM (03/06/14 8:46 AM) RBC [4.20-5.40 4.00 M/CMM M/CMM] *LOW* (03/06/14 8:46 AM) Hgb [12.0-16.0 g/dL] 12.7 g/dL (03/06/14 8:46 AM) Hct [36.0-48.0 %] 36.9 % (03/06/14 8:46 AM) MCV [80.0-98.0 fL] 92.4 fL (03/06/14 8:46 AM) MCH [27.0-31.0 pg] 31.8 pg *HI* (03/06/14 8:46 AM) MCHC [32.0-36.0 34.5 g/dL g/dL] (03/06/14 8:46 AM) RDW [11.5-14.5 %] 13.8 % (03/06/14 8:46 AM) Platelet [133-450 222 K/CMM K/CMM] (03/06/14 8:46 AM) MPV [7.4-10.4 fL] 7.6 fL (03/06/14 8:46 AM) Segs [45.0-75.0 %] 57.9 % (03/06/14 8:46 AM) Lymphocytes 33.9 % [20.0-40.0 %] (03/06/14 8:46 AM) Monocytes [2.0-12.0 6.0 % %] (03/06/14 8:46 AM) Eosinophils [0.0-4.0 1.9 % %] (03/06/14 8:46 AM) Basophils [0.0-1.0 0.3 % %] (03/06/14 8:46 AM) Segs-Bands # 4.0 K/CMM [1.5-8.1 K/CMM] (03/06/14 8:46 AM) Lymphocytes # 2.3 K/CMM [1.0-5.5 K/CMM] (03/06/14 8:46 AM) Monocytes # [0.0-0.8 0.4 K/CMM K/CMM] (03/06/14 8:46 AM) Eosinophils # 0.1 K/CMM [0.0-0.5 K/CMM] (03/06/14 8:46 AM) PT [12.0-14.7 15.6 seconds seconds] *HI* (03/06/14 8:46 AM) INR [0.85-1.17] 1.23 3 *HI* (03/06/14 8:46 AM) PTT [22.9-35.8 41.4 seconds 4 seconds] *HI* (03/06/14 8:46 AM) 3Interpretive Data: RECOMMENDED RANGES FOR PROTIME INR: 2.0-3.0 for most medical and surgical thromboembolic states. 2.5-3.5 for artificial heart valves and recurrent embolism. INR SHOULD BE USED ONLY FOR PATIENTS ON STABLE ANTICOAGULANT THERAPY. 4Interpretive Data: Heparin Therapeutic Range: 57 - 92 Seconds Medications Administered During Your Visit No data available for this section Immunizations No data available for this section Social History Social History Type Response Smoking Status Former smoker, Exposure to Tobacco Smoke None, Cigarette Smoking Last 365 Days Yes, Reg Smoking Cessation Counseling No
--- OUTSIDE RECORDS SUMMARY | 2018-04-13 07:24 | XMS REPORT | Summary of Care ---
Author Author [facility] Organization [facility] Address Unknown Phone Unavailable Encounter [facility] Chrystal(FIN) [id number] Date(s): 02/11/17 - 02/11/17 [facility] [address] [place] [phone] Discharge Disposition: Home or Self Care Attending Physician: Jeffery Mukherjee MD Vital Signs No data available for this section Problem List Condition Effective Dates Status Health Status Informant Anemia1 Active Asthma2 Active Biliary dyskinesia3 11/10/11 Active CHF - Congestive Active heart failure(Confirmed) Cough(Confirmed) Active Depression(Confirmed Active ) Diabetes Active mellitus(Confirmed) GERD - Active Gastro-esophageal reflux disease(Confirmed) HLD - Active Hyperlipidemia(Confi rmed) HTN - Active Hypertension(Confirm ed) Hypothyroidism(Confi Active rmed) Obesity4 11/10/11 Active JOEL - Obstructive Active sleep apnea(Confirmed) Pacemaker catheter, Active device(Confirmed) Pain(Confirmed) Active 1Data migrated from [employer] on 07/13/14. 2Data migrated from [employer] on 07/13/14. 3Data migrated from [employer] on 07/13/14. 4Data migrated from [employer] on 07/13/14. Allergies, Adverse Reactions, Alerts Substance Reaction Severity Status NKDA Active Medications No data available for this section Results No data available for this section Immunizations Given and Recorded Vaccine Date Status Refusal Reason pneumococcal 23-valent vaccine1 01/14/12 Given 1Result Comment: Discontinued by Dr. Saleh ([facility] fellow). Procedures Procedure Date Related Diagnosis Body Site Colon operation1 Hysterectomy Laminectomy Nasal operation2 1resection 2deviated septum Social History Social History Type Response Smoking Status Current some day smoker; Exposure to Tobacco Smoke None; Cigarette Smoking Last 365 Days Yes; Reg Smoking Cessation Counseling No; Tobacco use per day: 4; Assessment and Plan No data available for this section
--- OUTSIDE RECORDS SUMMARY | 2018-04-13 07:24 | XMS REPORT ---
[facility] Address Unknown Phone Unavailable Care Team Providers Care Stenciling Machine Tender Name Role Phone Unavailable Unavailable Payers Payer Name Policy Type Policy Number Effective Date Expiration Date Problems This patient has no known problems. Allergies, Adverse Reactions, Alerts Allergy Name Allergy Type Status Severity Reaction(s) Onset Date Inactive Date Treating Clinician Comments No Known Allergies DA Active U 2017-11-07 00:00:00 No Known Allergies DA Active U 2017-06-02 00:00:00 Medications This patient has no known medications.
--- OUTSIDE RECORDS SUMMARY | 2018-04-13 07:24 | XMS REPORT | CCD ---
Author Author Auto Generated Organization [facility] Address Unknown Phone Unavailable Care Team Providers Care Instant Potato Processing Supervisor Name Role Phone Jim Clark CP Allergies, Adverse Reactions, Alerts Substance Reaction Status NKDA Active Problem List Condition Effective Dates Status Chest pain < 01/14/2012 Inactive Cough Active SOBOE - Shortness of breath on exertion < 01/14/2012 Inactive
--- OUTSIDE RECORDS SUMMARY | 2018-04-13 07:24 | XMS REPORT | CCD ---
Author Author Auto Generated Organization [facility] Address Unknown Phone Unavailable Care Team Providers [employer] Name Role Phone Jim Clark RP Allergies, Adverse Reactions, Alerts Substance Reaction Status NKDA Active Problem List Condition Effective Dates Status Chest pain < 01/14/2012 Inactive Cough Active SOBOE - Shortness of breath on exertion < 01/14/2012 Inactive Medications Medication Instructions Start Date End Date Status acetaminophen-hydroc 2 tab, Route: PO, Dosing Weight 04/11/2012 04/12/2012 Discontinued odone 325 mg-5 mg 141.364, kg, Q6H, PRN Pain Score oral tablet 4-6, Start date: 04/11/12 9:32:00, Duration: 30 day, Stop date: 05/11/12 9:31:00 Results CHEMISTRY Most recent to oldest [Reference Range]: 1 Creatinine Lvl [0.5-1.4 mg/dL] 0.9 mg/dL (04/11/2012 10:23:00) eGFR 73 mL/min/1.73m2 1 *NA* (04/11/2012 10:23:00) BUN [7-22 mg/dL] 14 mg/dL (04/11/2012 10:23:00) 1Result Comment: The eGFR is calculated using [...] be mul tiplied by the estimated BMI. HEMATOLOGY Most recent to oldest [Reference Range]: 1 Platelet [133-450 K/CMM] 245 K/CMM (04/11/2012 10:23:00) PT [12.0-14.7 seconds] 14.9 seconds *HI* (04/11/2012 10:23:00) INR [0.85-1.17] 1.15 2 (04/11/2012 10:23:00) PTT [22.9-35.8 seconds] 37.8 seconds 3 *HI* (04/11/2012 10:23:00) 2Interpretive Data: RECOMMENDED RANGES FOR PROTIME INR: 2.0-3.0 for most medical and surgical thromboembolic states. 2.5-3.5 for artificial heart valves and recurrent embolism. INR SHOULD BE USED ONLY FOR PATIENTS ON STABLE ANTICOAGULANT THERAPY. 3Interpretive Data: Heparin Therapeutic Range: 57 - 92 Seconds
[2018-04-13 14:00] VITALS: BP 139/83
[2018-04-13 14:35] LABS: WBC,FECAL (FECAL LACTOFERRIN) NEGATIVE (NEGATIVE)
--- NOTE | 2018-04-13 19:44 | Operative Report ---
DATE OF PROCEDURE: 04/13/2018 SURGEON: Noel Patton MD PROCEDURE: EGD with esophageal dilatation, esophageal brushings and biopsies and colonoscopy with polypectomy and biopsies. INDICATIONS FOR EGD: Dysphagia. INDICATIONS FOR COLONOSCOPY: Chronic diarrhea, anorectal leakage, personal history of colon polyps. MEDICATIONS: The patient was done under MAC. Please see anesthesiologist's note. PROCEDURE IN DETAIL: With the patient in the left lateral decubitus position, flexible fiberoptic Olympus gastroscope was introduced into the esophagus under direct visualization without any difficulty. There were some scattered whitish plaques noted in the esophagus. They were more prominent in the distal esophagus and brushings were obtained and sent to stain for Dora. The esophagus was then dilated to size 52-Mongolian Joshi. The scope was then advanced with ease, inserted into the stomach and the mucosa overlying the antrum and the body revealed some patchy intense erythema and moderate edema and biopsies were obtained and sent to stain for H. pylori. Pylorus appeared to be of normal contour and shape, was intubated with ease and the scope was advanced all the way to the second portion of the duodenum. Biopsies were obtained from the proximal second portion and the duodenal bulb to rule out sprue. The scope was then withdrawn back into the stomach and retroflexed. Mucosa overlying the fundus and cardia appeared to be within normal limits. The scope was then straightened out it was subsequently withdrawn. The patient tolerated procedure well. IMPRESSION: 1. Rule out Dora esophagitis. 2. Esophagus dilated to size 52-Mongolian Joshi. 3. Gastritis, biopsied. Biopsies sent to stain for Helicobacter pylori. 4. Rule out sprue. PLAN: Follow up histology. Initiate Protonix 40 mg one p.o. q.a.m. before meals and Diflucan 200 mg one p.o. daily x10 days. The patient was then turned around and after adequate lubrication of the anal canal, a flexible fiberoptic Olympus colonoscope was inserted into the rectum with ease and advanced all the way to the cecum. Mucosa overlying the cecum appeared to be within normal limits. The ileocecal valve was intubated and the scope was advanced into the terminal ileum. Biopsies were obtained. The scope was then withdrawn back into the colon. It was then withdrawn slowly. Mucosa overlying the ascending, transverse, descending, sigmoid, and rectum revealed some patchy mild inflammatory changes, which were more pronounced in the left colon. Random biopsies were obtained. Diverticular disease was noted to involve the descending and the sigmoid colon. Two polyps were hot biopsied from the sigmoid colon. The scope was then retroflexed into the distal rectum and small internal hemorrhoids were noted, none of which was actively bleeding. The scope was then straightened out, it was subsequently withdrawn after securing an adequate stool specimen that was sent for the appropriate stool studies. The patient tolerated the procedure well. IMPRESSION: 1. Colitis, mild, more pronounced in the left colon. 2. Diverticulosis. 3. Sigmoid colon polyps x2, hot biopsied. 4. Proctitis, biopsies obtained. 5. Internal hemorrhoids, none actively bleeding. PLAN: Follow up histology. Follow up stool studies. Initiate Bentyl 10 mg one p.o. t.i.d. VSL #3, one p.o. daily. The patient might benefit from a followup colonoscopy in 3 to 5 years. Noel Patton MD [facility]/PABLO /[id number] cc: Silviano Barrera DO
[2018-04-14 07:17] LABS: C DIFFICILE TOXIN A&B AMP PROB NEGATIVE (NEGATIVE)
== END | disposition home or self-care (01) ==
LOC: OR 07:20
PROVIDERS: ATTEND Internal Medicine Gastroenterology
DX: Z12.11 Encounter for screening for malignant neoplasm of colon (principal); Z86.010 Personal history of colon polyps; R13.10 Dysphagia, unspecified; Z86.19 Personal history of other infectious and parasitic diseases; G47.33 Obstructive sleep apnea (adult) (pediatric); Z95.810 Presence of automatic (implantable) cardiac defibrillator; I50.9 Heart failure, unspecified; K21.9 Gastro-esophageal reflux disease without esophagitis; K57.30 Diverticulosis of large intestine without perforation or abscess without bleeding; E11.9 Type 2 diabetes mellitus without complications; E03.9 Hypothyroidism, unspecified; Z87.440 Personal history of urinary (tract) infections; R19.7 Diarrhea, unspecified; R15.9 Full incontinence of feces; Z98.0 Intestinal bypass and anastomosis status; K22.2 Esophageal obstruction; K29.70 Gastritis, unspecified, without bleeding; K51.50 Left sided colitis without complications; K62.89 Other specified diseases of anus and rectum; K64.8 Other hemorrhoids; Z01.810 Encounter for preprocedural cardiovascular examination; Z01.812 Encounter for preprocedural laboratory examination; Z79.82 Long term (current) use of aspirin; Z79.84 Long term (current) use of oral hypoglycemic drugs; K63.5 Polyp of colon
CPT/HCPCS: 36415 ×2; 43239; 43450; 45384; 80053; 82948; 83630; 83993; 85025; 85610; 85730; 87045; 87106; 87177; 87205; 87328; 87493; 88305; 88312; 93005; J1610; J2250; J2704; 43235; 45378; 45380

== ENCOUNTER → 2018-06-28 | Outpatient (CLI) | payer MEDICARE ==
[~2018-06-28] MED LIST changes: -FENTANYL CITRATE/PF 100MCG/2 ML INJ ONE; -GLUCAGON FOR INJ 1 MG VIAL ONE; +IOPAMIDOL 370 MG/ML 200 ML INFUS..BTL INJ ONE; -MIDAZOLAM HCL 2 MG/2 ML VIAL ONE; -PROPOFOL IV EMULSION 10 MG/ML 50 ML VIAL ONE; +SODIUM CHLORIDE 0.9% 50ML 50 ML ONE
[2018-06-28 16:42] LABS: BLOOD UREA NITROGEN 19 mg/dL (7-26); BUN/CREATININE RATIO 23 (6-25); CREATININE, SERUM 0.82 mg/dL (0.57-1.11); EST GLOMERULAR FILTRATION RATE > 60 ML/MIN (60-)
--- NOTE | 2018-06-28 18:52 | Diagnostic Imaging Report ---
EXAM: CT of the abdomen and pelvis WITH contrast HISTORY: ABDOMEN PAIN, diarrhea, history of appendectomy, cholecystectomy, hysterectomy, intestinal surgery COMPARISON: None. TECHNIQUE: The abdomen and pelvis were scanned utilizing a multidetector helical scanner. Coronal and sagittal reformats are provided. PROTOCOL: Routine IV CONTRAST: 100 cc of Isovue-370. ORAL CONTRAST: Water RADIATION DOSE: Total DLP: 705.89 mGy*cm Estimated effective dose: (DLP x 0.015 x size factor) Dose modulation, iterative reconstruction, and/or weight based adjustment of the mA/kV was utilized to reduce the radiation dose to as low as reasonably achievable. COMPLICATIONS: None FINDINGS: LOWER THORAX: Indeterminate right middle lobe 3 mm nodular density abutting the pleural surface anteriorly (series 2 image 4). HEPATOBILIARY: Diffusely decreased attenuation of the liver. No mass. No biliary dilation. Metallic clips in the right upper quadrant of the abdomen are compatible with prior cholecystectomy. SPLEEN: No splenomegaly. PANCREAS: No focal masses or ductal dilatation. ADRENALS: No discrete adrenal nodule. KIDNEYS/URETERS: No hydronephrosis, stones, or definite solid mass lesions. PELVIC ORGANS/BLADDER: The urinary bladder is decompressed, which limits evaluation. GI TRACT: No dilation or wall thickening identified. PERITONEUM / RETROPERITONEUM: No free air or fluid. LYMPH NODES: No pathologically enlarged lymph node. VESSELS: Diffuse scattered atherosclerotic vascular calcifications. Radiopaque cardiac leads. BONES: No aggressive osseous lesion or acute fracture. Multifocal mild to moderate degenerative changes. SOFT TISSUES: A fat-containing right paraumbilical hernia, the abdominal wall defect measures 2.9 cm (ML) x 2.5 cm (CC). IMPRESSION: 1. Hepatic steatosis. 2. A fat-containing paraumbilical hernia. 3. No bowel obstruction, ileus, or abscess. 4. Incidental 3 mm right middle lobe pleural-based nodule. If the patient has an increased risk for lung cancer, such as a significant smoking history or known malignancy, a follow-up CT of the chest without contrast is recommended in 12 months to assess for stability. Signed by: Dr. Guy Kolb D.O., M.M.M. on 06/28/2018 6:49 PM
== END ==
LOC: CT 15:46
PROVIDERS: ATTEND Internal Medicine Gastroenterology
DX: R10.9 Unspecified abdominal pain (principal)
CPT/HCPCS: 36415; 74177; 82565; 84520; Q9967

== ENCOUNTER → 2018-11-06 | Outpatient (CLI) | payer MEDICARE ==
[~2018-11-06] MED LIST changes: -IOPAMIDOL 370 MG/ML 200 ML INFUS..BTL INJ ONE; -SODIUM CHLORIDE 0.9% 50ML 50 ML ONE
--- NOTE | 2018-11-08 11:56 | Diagnostic Imaging Report ---
#[id number] - MGSCRBIL #BILATERAL DIGITAL SCREENING MAMMOGRAM WITH CAD: 11/06/2018 CLINICAL: Routine screening. No prior exams were available for comparison. The tissue of both breasts is predominantly fatty. Current study was also evaluated with a Computer Aided Detection (CAD) system. There is a left pacemaker device which partially obscures the upper left breast. No significant masses, calcifications, or other findings are seen in either breast. IMPRESSION: NEGATIVE There is no mammographic evidence of malignancy. A 1 year screening mammogram is recommended. The patient will be notified by letter of the results. MENDEZ PALOMION M.D. kw/:11/07/2018 14:55:53 [employer]ender: Jami CABRERA(R)(M), [facility] letter sent: Normal Exam Mammogram BI-RADS: 1 Negative
== END ==
LOC: MAMMO 13:37
PROVIDERS: ATTEND Internal Medicine
DX: Z12.31 Encounter for screening mammogram for malignant neoplasm of breast (principal)
CPT/HCPCS: 77067